=== PATIENT | female | born 1965 | race Caucasian/White ===

== ENCOUNTER 2017-03-30 01:49 | Emergency (ER) | payer BC, MEDICARE ==
[2017-03-30 01:55] VITALS: RESP 18
[2017-03-30] MEDS ORDERED: SODIUM CHLORIDE 0.9% 500 ML IV STA (02:08)
[2017-03-30] MEDS ORDERED: MAG HYDROX/AL HYDROX/SIMETH 30 ML, HYOSCYAMINE ELIXIR 10 ML, CIMETIDINE HCL 300 MG PO STA ×3 (02:08)
[2017-03-30] MEDS ORDERED: ONDANSETRON 4 MG/2 ML VIAL IVP STA (02:08)
--- NOTE | 2017-03-30 02:25 | ED ---
General Adult HPI - General Chief complaint: Abdominal Pain Stated complaint: burning sensation in chest, confusion, sob Time Seen by Provider: 03/30/17 02:08 Source: patient, RN notes reviewed Mode of arrival: ambulatory Limitations: no limitations - History of Present Illness Initial comments: 52-year-old female presents emergency Department with multiple complaints. Patient complains of chest pain, upper abdominal pain and confusion. Patient states that she was at home approximately one hour ago when she started having burning sensation in her chest which has progressed into her upper abdomen. Patient states that she has some nausea no vomiting. She states that she's had a prior had a hernia repair by Dr. Silva in 3-4 years ago. Patient states that she has no cardiac history. Patient states she has a history of hypertension denies any hyperlipidemia diabetes and is a nonsmoker. Patient states she has some shortness of breath which is alleviated this time. She still complains of epigastric burning sensation. Patient does not feel this is as reflux though she has a history of it. Patient states she was also home wandering around the house and states that she felt confused sniffily mother in the room states that she was looking for her cell phone though the cell phone was in her hand. Patient denies any focal weakness. - Related Data Home Medications Medication Instructions Recorded Confirmed Amitriptyline HCl [Amitriptyline 25 mg PO BID 04/07/15 03/17/16 HCl] Baclofen [Baclofen] 10 mg PO HS 04/07/15 03/17/16 DULoxetine HCL [Cymbalta] 90 mg PO HS 04/07/15 03/17/16 Ibuprofen [Motrin] 800 mg PO TID PRN 04/07/15 03/19/16 Methocarbamol [Robaxin] 750 mg PO HS 04/07/15 03/17/16 oxyCODONE HCL [oxyCODONE HCL] 30 mg PO Q6H PRN 04/07/15 03/17/16 Dextroamphetamine/Amphetamine 20 mg PO BID 03/17/16 03/17/16 [Adderall] Topiramate [Topamax] 50 mg PO BID 03/17/16 03/17/16 Vitamin B Complex 1 each PO DAILY 03/17/16 03/17/16 traZODone HCL 150 mg PO HS 03/17/16 03/17/16 Previous Rx's Medication Instructions Recorded Hyoscyamine Sulfate [Levsin] 0.125 mg PO Q4HR PRN #10 tab 03/30/17 Allergies Allergy/AdvReac Type Severity Reaction Status Date / Time morphine Allergy Mild Rash/Hives Verified 03/30/17 01:55 Review of Systems ROS Statement: Those systems with pertinent positive or pertinent negative responses have been documented in the HPI. ROS Other: All systems not noted in ROS Statement are negative. Past Medical History Past Medical History: COPD, Fibromyalgia, GERD/Reflux, Hearing Disorder / Deafness, Osteoarthritis (OA), Pneumonia, Sleep Apnea/CPAP/BIPAP Additional Past Medical History / Comment(s): HIATAL HERNIA. CPAP @ 7.5L History of Any Multi-Drug Resistant Organisms: None Reported Past Surgical History: Hernia Repair, Hysterectomy, Orthopedic Surgery Additional Past Surgical History / Comment(s): TKA X2 RT, BILAT CTR, KNEE ARTHROSCOPY LEFT . HAD SEVERE PNEUMONIA AT 6 MONTHS & HAD A TRACH. LAPARATOMY REMOVAL OF LEFT OVARIAN CYST. X5 Past Anesthesia/Blood Transfusion Reactions: No Reported Reaction Past Psychological History: Depression Smoking Status: Former smoker Past Alcohol Use History: None Reported Additional Past Alcohol Use History / Comment(s): QUIT SMOKING 10 YRS AGO. SMOKED SINCE AGE 14 1 1/2 PPD Past Drug Use History: None Reported - Past Family History Father Family Medical History: Cancer Additional Family Medical History / Comment(s): COLON General Exam Limitations: no limitations General appearance: alert, in no apparent distress Head exam: Present: atraumatic, normocephalic, normal inspection Eye exam: Present: normal appearance, PERRL, EOMI. Absent: scleral icterus, conjunctival injection, periorbital swelling Respiratory exam: Present: normal lung sounds bilaterally. Absent: respiratory distress, wheezes, rales, rhonchi, stridor, chest wall tenderness Cardiovascular Exam: Present: regular rate, normal rhythm, normal heart sounds. Absent: systolic murmur, diastolic murmur, rubs, gallop, clicks GI/Abdominal exam: Present: soft, tenderness (Moderate epigastric), normal bowel sounds. Absent: distended, guarding, rebound, rigid Back exam: Absent: CVA tenderness (R), CVA tenderness (L) Neurological exam: Present: alert, oriented X3, CN II-XII intact Skin exam: Present: warm, dry, intact, normal color. Absent: rash Course Vital Signs 03/30/17 01:53 Temperature 97.9 F Pulse Rate 103 H Respiratory 18 Rate Blood Pressure 134/73 O2 Sat by Pulse 98 Oximetry - Reevaluation(s) Reevaluation #1: 03/30/17 03:36 Patient was updated on lab results come EKG chest x-ray KUB. Patient feels much improved after GI cocktail. This most likely related to her GERD/ gastritis. She's had a previous scope done recently. EKG Findings - EKG Comments: EKG Findings:: EKG performed at 2:22 normal sinus rhythm with a rate of 85 DE 186 QRS duration 84, QT/QTC 350/416 Medical Decision Making - Medical Decision Making 52-year-old female presented for lower chest, upper abdominal pain. Patient's symptoms is essentially resolved with GI cocktail. This is related to her gastritis diagnosed with Dr. Silva. Patient will follow-up with Dr. Silva. Patient be given Hycotuss min as she felt better. Patient also be informed she can take [id number] Mylanta. - Lab Data Result diagrams: 03/30/17 02:22 03/30/17 02:22 Lab Results 03/30/17 03/30/17 03/30/17 Range/Units 02:22 02:22 02:22 WBC 10.7 H (3.8-10.6) k/uL RBC 4.43 (3.80-5.40) m/uL Hgb 12.3 (11.4-16.0) gm/dL Hct 39.2 (34.0-46.0) % MCV 88.5 (80.0-100.0) fL MCH 27.8 (25.0-35.0) pg MCHC 31.4 (31.0-37.0) g/dL RDW 13.1 (11.5-15.5) % Plt Count 418 (150-450) k/uL Neutrophils % 56 % Lymphocytes % 31 % Monocytes % 8 % Eosinophils % 4 % Basophils % 1 % Neutrophils # 6.0 (1.3-7.7) k/uL Lymphocytes # 3.3 (1.0-4.8) k/uL Monocytes # 0.8 (0-1.0) k/uL Eosinophils # 0.4 (0-0.7) k/uL Basophils # 0.1 (0-0.2) k/uL PT 10.5 (9.0-12.0) sec INR 1.0 (<1.1) APTT 26.2 (22.0-30.0) sec Sodium 142 (137-145) mmol/L Potassium 3.9 (3.5-5.1) mmol/L Chloride 105 (98-107) mmol/L Carbon Dioxide 24 (22-30) mmol/L Anion Gap 13 mmol/L BUN 12 (7-17) mg/dL Creatinine 0.93 (0.52-1.04) mg/dL Est GFR (MDRD) Af Amer >60 (>60 ml/min/1.73 sqM) Est GFR (MDRD) Non-Af >60 (>60 ml/min/1.73 sqM) Glucose 78 (74-99) mg/dL Calcium 9.4 (8.4-10.2) mg/dL Total Bilirubin 0.5 (0.2-1.3) mg/dL AST 22 (14-36) U/L ALT 26 (9-52) U/L Alkaline Phosphatase 58 (38-126) U/L Troponin I (0.000-0.034) ng/mL Total Protein 7.7 (6.3-8.2) g/dL Albumin 4.7 (3.5-5.0) g/dL Amylase 93 (30-110) U/L Lipase 122 (23-300) U/L Urine Color Urine Appearance (Clear) Urine pH (5.0-8.0) Ur Specific [place] (1.001-1.035) Urine Protein (Negative) Urine Glucose (UA) (Negative) Urine Ketones (Negative) Urine Blood (Negative) Urine Nitrite (Negative) Urine Bilirubin (Negative) Urine Urobilinogen (<2.0) mg/dL Ur Leukocyte Esterase (Negative) Urine RBC (0-5) /hpf Urine WBC (0-5) /hpf Ur Squamous Epith Cells (0-4) /hpf Urine Bacteria (None) /hpf Hyaline Casts (0-2) /lpf Urine Mucus (None) /hpf Urine Opiates Screen (NotDetected) Ur Oxycodone Screen (NotDetected) Urine Methadone Screen (NotDetected) Ur Propoxyphene Screen (NotDetected) Ur Barbiturates Screen (NotDetected) U Tricyclic Antidepress (NotDetected) Ur Phencyclidine Scrn (NotDetected) Ur Amphetamines Screen (NotDetected) U Methamphetamines Scrn (NotDetected) U Benzodiazepines Scrn (NotDetected) Urine Cocaine Screen (NotDetected) U Marijuana (THC) Screen (NotDetected) 03/30/17 03/30/17 03/30/17 Range/Units 02:22 02:22 02:22 WBC (3.8-10.6) k/uL RBC (3.80-5.40) m/uL Hgb (11.4-16.0) gm/dL Hct (34.0-46.0) % MCV (80.0-100.0) fL MCH (25.0-35.0) pg MCHC (31.0-37.0) g/dL RDW (11.5-15.5) % Plt Count (150-450) k/uL Neutrophils % % Lymphocytes % % Monocytes % % Eosinophils % % Basophils % % Neutrophils # (1.3-7.7) k/uL Lymphocytes # (1.0-4.8) k/uL Monocytes # (0-1.0) k/uL Eosinophils # (0-0.7) k/uL Basophils # (0-0.2) k/uL PT (9.0-12.0) sec INR (<1.1) APTT (22.0-30.0) sec Sodium (137-145) mmol/L Potassium (3.5-5.1) mmol/L Chloride (98-107) mmol/L Carbon Dioxide (22-30) mmol/L Anion Gap mmol/L BUN (7-17) mg/dL Creatinine (0.52-1.04) mg/dL Est GFR (MDRD) Af Amer (>60 ml/min/1.73 sqM) Est GFR (MDRD) Non-Af (>60 ml/min/1.73 sqM) Glucose (74-99) mg/dL Calcium (8.4-10.2) mg/dL Total Bilirubin (0.2-1.3) mg/dL AST (14-36) U/L ALT (9-52) U/L Alkaline Phosphatase (38-126) U/L Troponin I <0.012 (0.000-0.034) ng/mL Total Protein (6.3-8.2) g/dL Albumin (3.5-5.0) g/dL Amylase (30-110) U/L Lipase (23-300) U/L Urine Color Yellow Urine Appearance Cloudy H (Clear) Urine pH 5.5 (5.0-8.0) Ur Specific [place] 1.008 (1.001-1.035) Urine Protein Negative (Negative) Urine Glucose (UA) Negative (Negative) Urine Ketones Negative (Negative) Urine Blood Negative (Negative) Urine Nitrite Negative (Negative) Urine Bilirubin Negative (Negative) Urine Urobilinogen <2.0 (<2.0) mg/dL Ur Leukocyte Esterase Large H (Negative) Urine RBC 4 (0-5) /hpf Urine WBC 16 H (0-5) /hpf Ur Squamous Epith Cells 11 H (0-4) /hpf Urine Bacteria Rare H (None) /hpf Hyaline Casts 8 H (0-2) /lpf Urine Mucus Rare H (None) /hpf Urine Opiates Screen Not Detected (NotDetected) Ur Oxycodone Screen Detected H (NotDetected) Urine Methadone Screen Not Detected (NotDetected) Ur Propoxyphene Screen Not Detected (NotDetected) Ur Barbiturates Screen Not Detected (NotDetected) U Tricyclic Antidepress Detected H (NotDetected) Ur Phencyclidine Scrn Not Detected (NotDetected) Ur Amphetamines Screen Detected H (NotDetected) U Methamphetamines Scrn Not Detected (NotDetected) U Benzodiazepines Scrn Not Detected (NotDetected) Urine Cocaine Screen Not Detected (NotDetected) U Marijuana (THC) Screen Not Detected (NotDetected) Disposition Clinical Impression: Abdominal pain, Gastritis, Esophageal spasm Disposition: HOME SELF-CARE Condition: Stable Instructions: Gastritis (ED) Additional Instructions: Please return to the Emergency Department if symptoms worsen or any other concerns. Prescriptions: Hyoscyamine Sulfate [Levsin] 0.125 mg PO Q4HR PRN #10 tab PRN Reason: Abdominal pain Referrals: Jason Jameson MD [Primary Care Provider] - 1-2 days Time of Disposition: 03:39
[2017-03-30 02:42] LABS: Basophils # (A) 0.1 k/uL (0-0.2); Basophils % (A) 1 %; CH 28.6; CHCM 32.5; Eosinophils # (A) 0.4 k/uL (0-0.7); Eosinophils % (A) 4 %; HCT 39.2 % (34.0-46.0); HDW 2.29; HGB 12.3 gm/dL (11.4-16.0); Luc # (Auto) 0.18; Luc % (Auto) 2; Lymphocytes # (A) 3.3 k/uL (1.0-4.8); Lymphocytes % (A) 31 %; MCH 27.8 pg (25.0-35.0); MCHC 31.4 g/dL (31.0-37.0); MCV 88.5 fL (80.0-100.0); Mean Platelet Volume 7.2; Monocytes # (A) 0.8 k/uL (0-1.0); Monocytes % (A) 8 %; Neutrophils % (A) 56 %; RBC 4.43 m/uL (3.80-5.40); RDW 13.1 % (11.5-15.5); WBC 10.7 k/uL (3.8-10.6); WBC (Perox) 11.33
[2017-03-30 02:50] LABS: Partial Thromboplastin Time 26.2 sec (22.0-30.0); Prothrombin Time 10.5 sec (9.0-12.0)
[2017-03-30 02:51] LABS: Appearance,Urine Cloudy (Clear); Bacteria,Urine Rare /hpf; Bilirubin,Urine Negative (Negative); Glucose,Urine (UA) Negative (Negative); Ketones,Urine Negative (Negative); Leukocyte Esterase,Urine Large (Negative); Mucus,Urine Rare /hpf; Nitrite,Urine Negative (Negative); PH, Urine 5.5 (5.0-8.0); Particle Count 12249; Protein,Urine Negative (Negative); RBC,Urine 4 /hpf (0-5); Specific Gravity,Urine 1.008 (1.001-1.035); Squamous Epithelial Cell,Urine 11 /hpf (0-4); UA Billing (MACRO vs. MICRO) MICRO; Urobilinogen,Urine <2.0 mg/dL (<2.0); WBC,Urine 16 /hpf (0-5)
[2017-03-30 03:04] LABS: ALT 26 U/L (9-52); AST 22 U/L (14-36); Alkaline Phosphatase 58 U/L (38-126); Amylase 93 U/L (30-110); Anion Gap 13 mmol/L; Blood Urea Nitrogen 12 mg/dL (7-17); Calcium 9.4 mg/dL (8.4-10.2); Carbon Dioxide 24 mmol/L (22-30); Chloride 105 mmol/L (98-107); Glucose 78 mg/dL (74-99); Non-African American GFR(MDRD) >60 (>60 ml/min/1.73 sqM); Potassium 3.9 mmol/L (3.5-5.1); Sodium 142 mmol/L (137-145); Total Bilirubin 0.5 mg/dL (0.2-1.3); Total Protein 7.7 g/dL (6.3-8.2)
--- NOTE | 2017-03-30 03:13 | CT ---
EXAM: CT Head Without Intravenous Contrast CLINICAL HISTORY: Reason: confusion TECHNIQUE: Axial computed tomography images of the head/brain without intravenous contrast. CTDI is 57 mGy and DLP is 1013 mGy-cm. This CT exam was performed using one or more of the following dose reduction techniques: automated exposure control, adjustment of the mA and/or kV according to patient size, and/or use of iterative reconstruction technique. COMPARISON: MRI brain 09/10/2015. FINDINGS: Brain: Unremarkable. No acute hemorrhage. Ventricles: No hydrocephalus. Redemonstrated slightly asymmetric larger size of the left lateral ventricle. Bones/joints: Unremarkable. No acute fracture. Soft tissues: Unremarkable. Vasculature: Intracranial vascular calcifications. Sinuses: Unremarkable as visualized. No acute sinusitis. Mastoid air cells: Unremarkable as visualized. No mastoid effusion. IMPRESSION: No acute intracranial abnormality.
--- NOTE | 2017-03-30 03:26 | XR ---
EXAM: XR Abdomen, 1 View CLINICAL HISTORY: Reason: abdominal pain TECHNIQUE: Frontal upright view of the abdomen/pelvis. COMPARISON: Abdominal films 03/10/2016. FINDINGS: Gastrointestinal tract: Nonobstructive bowel gas pattern. Gas-filled stomach. No free air under the hemidiaphragms. Organs: Cholecystectomy clips. Enlarged liver shadow concerning for hepatomegaly. Bones/joints: Mild degenerative changes of the spine. IMPRESSION: 1. Nonobstructive bowel gas pattern. 2. Gas-filled stomach. 3. Cholecystectomy clips. 4. Enlarged liver shadow concerning for hepatomegaly.
--- NOTE | 2017-03-30 03:27 | XR ---
EXAM: XR Chest, 2 Views CLINICAL HISTORY: Reason: abdominal pain TECHNIQUE: Frontal and lateral views of the chest. COMPARISON: Chest x-ray 04/10/2015. FINDINGS: Lungs: Unremarkable. No consolidation. Pleural space: Unremarkable. No pneumothorax. Heart: Unremarkable. No cardiomegaly. Mediastinum: Unremarkable. Bones/joints: Mild degenerative changes of the spine. Upper abdomen: Gas-filled stomach. Cholecystectomy clips. IMPRESSION: No acute cardiopulmonary process.
[2017-03-30 03:51] VITALS: BP 114/68; PULSE 76; TEMP 97.2
== END 2017-03-30 03:51 | disposition home or self-care (01) ==
LOC: EC 01:49
DX: K29.70 Gastritis, unspecified, without bleeding (principal); K22.4 Dyskinesia of esophagus; R06.02 Shortness of breath; R41.0 Disorientation, unspecified; M79.7 Fibromyalgia; K21.9 Gastro-esophageal reflux disease without esophagitis; M19.90 Unspecified osteoarthritis, unspecified site; H91.90 Unspecified hearing loss, unspecified ear; F32.9 Major depressive disorder, single episode, unspecified; Z87.891 Personal history of nicotine dependence; Z98.890 Other specified postprocedural states; Z90.710 Acquired absence of both cervix and uterus; Z79.899 Other long term (current) drug therapy; Z88.5 Allergy status to narcotic agent
CPT/HCPCS: 36415; 93005; 80053; 82150; 83690; 84484; 85025; 85610; 85730; 81001; 80306; 71020; 74000; 70450; 99284; 96374; 96361; J2405

== ENCOUNTER → 2017-04-07 | Outpatient (CLI) | payer BC, MEDICARE ==
--- NOTE | 2017-04-07 14:03 | MR ---
EXAMINATION TYPE: MR cervical spine wo con DATE OF EXAM ORDERED: 04/07/2017 1:50 PM HISTORY: M54.2 Cervicalgia. TECHNOLOGIST HISTORY AT TIME OF EXAM: Cervicalgia COMPARISON: Previous study dated 12/19/2014. TECHNIQUE: Multiplanar, multiecho imaging of the cervical spine was obtained without contrast on a 1 .5 [place] magnet. FINDINGS: Prevertebral soft tissues are normal. Vertebral body height and alignment are maintained. Atlantoaxial relationships are normal. There is a normal craniocervical junction. Cord signal appears normal. At C2-C3, no definite abnormality is seen. At C3-C4, there is a central disc protrusion deforming the thecal sac with cord contact but without c ompression. Intervertebral foramina are well maintained. The facet and uncovertebral joints are unrem arkable. At C4-C5, the intervertebral foramina are maintained. There is a mild, diffuse disc displacement. The facet and uncovertebral joints are unremarkable. At C5-C6, there is disc space loss. There is a diffuse disc displacement. This is deforming the theca l sac anteriorly with cord contact and mild compression. There is mild, bilateral intervertebral fora margie narrowing. At C6-C7, there is disc space loss. There is a broad-based disc protrusion deforming the thecal sac w ith cord contact but without compression. There is mild, bilateral intervertebral foraminal narrowing . At C7-T1, there is disc space loss. Intervertebral foramina are well maintained. There is no signific ant compressive discopathy. IMPRESSION: 1. STABLE CENTRAL DISC PROTRUSION, C3-4 DEFORMING THE THECAL SAC WITH CORD CONTACT WITHOUT COMPRESSIO N. 2. DIFFUSE DISC DISPLACEMENT OR PROTRUSIONS, C5-6 AND C6-7 DEFORMING THE THECAL SAC WITH CORD CONTACT WITH MILD COMPRESSION AT C5-6.
== END | disposition home or self-care (01) ==
LOC: RADMRIMAIN 13:21
PROVIDERS: ATTEND Psychiatry & Neurology Neurology
DX: M50.21 Other cervical disc displacement, high cervical region (principal); Z88.5 Allergy status to narcotic agent; Z88.8 Allergy status to other drugs, medicaments and biological substances; Z91.048 Other nonmedicinal substance allergy status
CPT/HCPCS: 72141

== ENCOUNTER → 2017-04-11 | Outpatient (CLI) | payer BC, MEDICARE ==
--- NOTE | 2017-04-11 11:11 | FL ---
EXAMINATION TYPE: FL barium swallow DATE OF EXAM: 04/11/2017 LIMITED ESOPHAGRAM: CLINICAL HISTORY: History of Johnathan fundoplication surgery 2013 with increasing dysphasia or food ge tting stuck in the mid to lower esophagus for one year. TECHNIQUE: Limited esophagram is performed utilizing 2-3 oz of ez Paque barium. A total of 0.4 minut es of fluoroscopic time was utilized during procedure. COMPARISON: CT abdomen and pelvis March 10, 2016. Prior esophagram March 18, 2016. FINDINGS: The patient drank oral contrast. There is good flow of contrast along the course of the esophagus on today's study. There is good flow of contrast along the course of the diaphragmatic hia tus and proximal stomach at level of hiatal hernia surgery. There is no recurrent hiatal hernia seen . No suspicious intraluminal mass or stricture identified. Cholecystectomy clips are incidentally not ed. IMPRESSION: No evidence of recurrent hiatal hernia or significant obstruction. Unremarkable study oscar rocha.
== END | disposition home or self-care (01) ==
LOC: RADFLWHC 10:14
PROVIDERS: ATTEND Surgery
DX: R13.10 Dysphagia, unspecified (principal)
CPT/HCPCS: 74220

== ENCOUNTER → 2017-04-12 | Outpatient (CLI) | payer BC, MEDICARE ==
--- NOTE | 2017-04-12 15:45 | US ---
EXAMINATION TYPE: US carotid duplex BILAT DATE OF EXAM: 04/12/2017 COMPARISON: NONE CLINICAL HISTORY: R42 DIZZINESS,R55 SYNCOPE. EXAM MEASUREMENTS: RIGHT: Peak Systolic Velocity (PSV) cm/sec ----- Right CCA: 103.0 ----- Right ICA: 120.0 ----- Right ECA: 121.0 ICA/CCA ratio: 1.2 RIGHT: End Diastole cm/sec ----- Right CCA: 32.6 ----- Right ICA: 46.2 ----- Right ECA: 29.9 LEFT: Peak Systolic Velocity (PSV) cm/sec ----- Left CCA: 130.0 ----- Left ICA: 112.0 ----- Left ECA: 113.0 ICA/CCA ratio: 0.9 LEFT: End Diastole cm/sec ----- Left CCA: 42.8 ----- Left ICA: 28.5 ----- Left ECA: 21.1 VERTEBRALS (direction of flow): Right Vertebral: Antegrade Left Vertebral: Antegrade No significant stenosis seen, mild bilateral plaque. Incidental note made of lymph nodes. IMPRESSION: No hemodynamic significant stenosis of the proximal internal carotid arteries, indirect measurement of carotid stenosis
== END | disposition home or self-care (01) ==
LOC: RADUSWWP 14:57
PROVIDERS: ATTEND Psychiatry & Neurology Neurology
DX: R42 Dizziness and giddiness (principal); R55 Syncope and collapse
CPT/HCPCS: 93880

== ENCOUNTER 2017-05-06 08:22 | Day surgery (SDC) | payer BC, MEDICARE ==
[2017-05-04 11:41] VITALS: BMI 30.1
[~2017-05-06 08:22] MED LIST: LACTATED RINGERS 1,000 ML IV SCH
[2017-05-06 08:56] VITALS: RESP 16; TEMP 97.3
[2017-05-06] MEDS ORDERED: LIDOCAINE 1% 20 ML VIAL (10MG/ML) FOR IV START SQ ONE (09:02)
[2017-05-06] MEDS ORDERED: LIDOCAINE 1% INJ 10MG/ML (20 ML MDV) ONE (09:15)
[2017-05-06] MEDS ORDERED: PROPOFOL 10 MG/ML 20 ML VIAL IV ONE (09:15)
--- NOTE | 2017-05-06 09:18 | P.GSHP ---
History of Present Illness H&P Date: 05/06/17 Chief Complaint: Dysphagia This a 52-year-old female who said complaints of dysphagia. Patient had a recent esophagram shows no evidence of hiatal hernia obstruction. She presents today for EGD. - Constitutional Constitutional: Reports as per HPI Past Medical History Past Medical History: COPD, Fibromyalgia, GERD/Reflux, Hyperlipidemia, Hypertension, Osteoarthritis (OA), Sleep Apnea/CPAP/BIPAP Additional Past Medical History / Comment(s): HIATAL HERNIA; CPAP @ 7.5L; History of Any Multi-Drug Resistant Organisms: None Reported Past Surgical History: Hernia Repair, Hysterectomy, Orthopedic Surgery Additional Past Surgical History / Comment(s): total r knee x2; BILAT CARPAL TUNNEL; KNEE ARTHROSCOPY LEFT;. REMOVAL OF LEFT OVARIAN CYST. X5 Past Anesthesia/Blood Transfusion Reactions: No Reported Reaction Smoking Status: Former smoker - Past Family History Father Family Medical History: Cancer Additional Family Medical History / Comment(s): COLON Medications and Allergies Home Medications Medication Instructions Recorded Confirmed Type Amitriptyline HCl [Amitriptyline 25 mg PO BID 04/07/15 05/04/17 History HCl] Baclofen [Baclofen] 10 mg PO HS 04/07/15 05/04/17 History DULoxetine HCL [Cymbalta] 90 mg PO HS 04/07/15 05/04/17 History Ibuprofen [Motrin] 800 mg PO TID PRN 04/07/15 05/04/17 History Methocarbamol [Robaxin] 750 mg PO HS 04/07/15 05/04/17 History oxyCODONE HCL [oxyCODONE HCL] 20 mg PO Q6H PRN 04/07/15 05/04/17 History Dextroamphetamine/Amphetamine 20 mg PO BID 03/17/16 05/04/17 History [Adderall] Topiramate [Topamax] 50 mg PO BID 03/17/16 05/04/17 History traZODone HCL 150 mg PO HS 03/17/16 05/04/17 History Lisinopril [Zestril] 10 mg PO HS 05/04/17 05/04/17 History Allergies Allergy/AdvReac Type Severity Reaction Status Date / Time morphine Allergy Mild Rash/Hives Verified 05/06/17 08:57 Surgical - Exam Vital Signs Temp Pulse Resp BP Pulse Ox 97.3 F L 88 16 121/75 99 05/06/17 08:55 05/06/17 08:55 05/06/17 08:55 05/06/17 08:55 05/06/17 08:55 - General well developed, no distress - Eyes PERRL - ENT normal pinna - Neck no masses - Respiratory normal expansion - Cardiovascular Rhythm: regular - Abdomen Abdomen: soft, non tender Assessment and Plan Plan: Dysphagia,. We will perform EGD.
--- NOTE | 2017-05-06 09:28 | P.OP ---
Date of Procedure: 05/06/17 Preoperative Diagnosis: Dysphagia Postoperative Diagnosis: Mild antral gastritis No hiatal hernia No evidence of esophagitis Procedure(s) Performed: EGD Implants: Anesthesia: MAC Surgeon: Sarbjit Silva Pathology: other (Antral) Condition: stable Disposition: PACU Indications for Procedure: Operative Findings: Description of Procedure: The patient's placed on the endoscopy table in the lateral position. She received IV sedation. The gastroscope placed oropharynx passed in the esophagus and stomach. Scope was then placed through the pylorus. The first and second portion of the duodenum appeared normal. Scope was then brought back the antrum and this appeared mildly inflamed and a biopsies performed. The scope was unretroflexed and remainder stomach appeared normal. There is no evidence of a hiatal hernia. The GE junction was at 47 is. Due to the patient' s complaint dysphagia a 20 mm balloon was placed across the GE junction. This helped position for 3 minutes. There is known to any injury to the stomach or esophagus. The distal esophagus appeared normal. Proximal esophagus normal. Scope was withdrawn for patient.
[2017-05-06 09:57] VITALS: BP 116/62; PULSE 71
== END 2017-05-06 10:16 | disposition home or self-care (01) ==
LOC: ORWHC2ENDO 08:22
PROVIDERS: ATTEND Surgery
DX: K29.50 Unspecified chronic gastritis without bleeding (principal); R13.10 Dysphagia, unspecified; J44.9 Chronic obstructive pulmonary disease, unspecified; M79.7 Fibromyalgia; K21.9 Gastro-esophageal reflux disease without esophagitis; E78.5 Hyperlipidemia, unspecified; I10 Essential (primary) hypertension; M19.90 Unspecified osteoarthritis, unspecified site; G47.33 Obstructive sleep apnea (adult) (pediatric); Z79.899 Other long term (current) drug therapy; Z88.5 Allergy status to narcotic agent; Z87.891 Personal history of nicotine dependence
CPT/HCPCS: 88305; 88342; 43239; 43249; J2001; J2704; C1726

== ENCOUNTER → 2017-06-17 | Outpatient (CLI) | payer BC, MEDICARE ==
--- NOTE | 2017-06-17 16:43 | MR ---
EXAMINATION TYPE: MR lumbar spine wo con DATE OF EXAM: 06/17/2017 COMPARISON: 03/12/2012 HISTORY: Low back pain TECHNIQUE: Multiplanar, multisequence images of the lumbar spine were acquired. There is a T1 and T2 hyperintens e vertebral body hemangioma of T12. Subcentimeter bilateral T2 hyperintense renal lesions are seen th at are incompletely characterized but may represent renal cysts. Tiny synovial cysts are seen on the right at L4 and posteriorly at L5. L1-L2: Normal disc appearance without desiccation. No herniation, protrusion or disc bulging. No ca nal stenosis is present. Foramina are patent bilaterally. L2-L3: There is a small broad-based disc bulge. No herniation, protrusion or disc bulging. No canal stenosis is present. Foramina are patent bilaterally. L3-L4: There is a small broad-based disc bulge in combination with facet arthropathy creates a very m ild bilateral neural foraminal narrowing. No spinal canal stenosis. L4-L5: Small broad-based disc bulge and facet arthropathy creating very mild bilateral neural foramin al narrowing. No spinal canal stenosis. L5-S1: Small broad-based disc bulge is seen. No evidence of neuroforaminal narrowing or spinal canal stenosis. Lumbar segments are intact. No paraspinal masses are identified. Conus medullaris has a normal appe arance. IMPRESSION: No evidence of disc herniation. No spinal canal stenosis.
== END | disposition home or self-care (01) ==
LOC: RADMRIMAIN 15:42
PROVIDERS: ATTEND Physician Assistant
DX: M54.5 Low back pain (principal)
CPT/HCPCS: 72148

== ENCOUNTER → 2017-07-20 | Outpatient (CLI) | payer BC, MEDICARE ==
[2017-07-20 17:09] LABS: Basophils % (A) 1 %; CH 27.8; CHCM 32.1; Eosinophils # (A) 0.3 k/uL (0-0.7); Eosinophils % (A) 4 %; HCT 37.3 % (34.0-46.0); HDW 2.41; HGB 12.5 gm/dL (11.4-16.0); Luc # (Auto) 0.17; Luc % (Auto) 2; Lymphocytes # (A) 2.3 k/uL (1.0-4.8); Lymphocytes % (A) 29 %; MCHC 33.4 g/dL (31.0-37.0); MCV 86.9 fL (80.0-100.0); Mean Platelet Volume 7.1; Monocytes # (A) 0.5 k/uL (0-1.0); Monocytes % (A) 6 %; Neutrophils # (A) 4.7 k/uL (1.3-7.7); Neutrophils % (A) 59 %; RDW 13.4 % (11.5-15.5); WBC 7.9 k/uL (3.8-10.6); WBC (Perox) 8.17
[2017-07-20 17:11] LABS: ALT 32 U/L (9-52); AST 21 U/L (14-36); Alkaline Phosphatase 71 U/L (38-126); Anion Gap 12 mmol/L; Blood Urea Nitrogen 18 mg/dL (7-17); Carbon Dioxide 25 mmol/L (22-30); Chloride 104 mmol/L (98-107); Creatine Kinase 209 U/L (30-135); Glucose 103 mg/dL (74-99); Non-African American GFR(MDRD) 53 (>60 ml/min/1.73 sqM); Potassium 4.1 mmol/L (3.5-5.1); Sodium 141 mmol/L (137-145); Total Bilirubin 0.2 mg/dL (0.2-1.3); Total Protein 7.3 g/dL (6.3-8.2)
--- NOTE | 2017-07-20 17:14 | CT ---
EXAMINATION TYPE: CT angio chest DATE OF EXAM: 07/20/2017 5:09 PM COMPARISON: NONE HISTORY: Dyspnea and chest pressure. CT DLP: 475.00 mGycm Automated exposure control for dose reduction was used. CONTRAST: CTA scan of the thorax is performed with IV Contrast, patient injected with 73 mL of Omnipaque 350, p ulmonary embolism protocol. There are 3-D post processed images.. FINDINGS: The lungs are clear of consolidation. There is no pleural effusion. Heart appears normal. There is no pericardial effusion. I see no filling defects in the pulmonary arteries. There is no evidence of aortic aneurysm or dissec tion. There is no mediastinal adenopathy. The thoracic spine is intact. IMPRESSION: NEGATIVE CT ANGIOGRAM OF THE CHEST. NO EVIDENCE OF PULMONARY EMBOLISM.
== END | disposition home or self-care (01) ==
LOC: RADCTMAIN 16:39
PROVIDERS: ATTEND Internal Medicine Critical Care Medicine
DX: R06.00 Dyspnea, unspecified (principal); Z88.6 Allergy status to analgesic agent
CPT/HCPCS: 84439; 80053; 82550; 84443; 85025; 71275; 36415; Q9967; 84436

== ENCOUNTER → 2017-08-01 | Outpatient (CLI) | payer BC, MEDICARE ==
--- NOTE | 2017-08-01 19:30 | ECHOF ---
Referral Reason:R07.89 Chest Wall Pain MEASUREMENTS -------- HEIGHT: 160.0 cm WEIGHT: 82.1 kg BP: 141/81 RVIDd: 3.0 cm (< 3.3) IVSd: 0.9 cm (0.6 - 1.1) LVIDd: 4.7 cm (3.9 - 5.3) LVPWd: 1.0 cm (0.6 - 1.1) IVSs: 1.3 cm LVIDs: 3.7 cm LVPWs: 1.5 cm LAESV Index (A-L): 17.76 ml/m Ao Diam: 2.3 cm (2.0 - 3.7) AV Cusp: 1.6 cm (1.5 - 2.6) LA Diam: 3.4 cm (2.7 - 3.8) MV EXCURSION: 17.245 mm (> 18.000) MV EF SLOPE: 102 mm/s (70 - 150) EPSS: 0.7 cm MV E Rafita: 0.90 m/s MV DecT: 189 ms MV A Rafita: 0.74 m/s MV E/A Ratio: 1.21 RAP: 5.00 mmHg RVSP: 21.42 mmHg FINDINGS -------- Sinus rhythm. This was a technically good study. The left ventricular size is normal. Left ventricular wall thickness is normal. Overall left ventricular systolic function is normal with, an EF between 55 - 60 %. The right ventricle is normal in size and function. Normal LA size by volume 22+/-6 ml/m2. The right atrium is normal in size. The aortic valve is trileaflet, and appears structurally normal. No aortic stenosis or regurgitation. The mitral valve leaflets are mildly thickened. There is trace mitral regurgitation. Trace tricuspid regurgitation present. Right ventricular systolic pressure is normal at < 35 mmHg. There is no evidence of pulmonary hypertension. The pulmonic valve is normal. The aortic root size is normal. Normal inferior vena cava with normal inspiratory collapse consistent with estimated right atrial pressure of 5 mmHg. The pericardium is normal. There is no pericardial effusion. CONCLUSIONS -------- 1. Sinus rhythm. 2. Right ventricular systolic pressure is normal at < 35 mmHg. 3. There is no evidence of pulmonary hypertension. 4. The aortic root size is normal. 5. There is no pericardial effusion. 6. This was a technically good study. 7. The left ventricular size is normal. 8. Overall left ventricular systolic function is normal with, an EF between 55 - 60 %. 9. Normal LA size by volume 22+/-6 ml/m2. 10. The aortic valve is trileaflet, and appears structurally normal. No aortic stenosis or regurgitation. 11. The mitral valve leaflets are mildly thickened. 12. There is trace mitral regurgitation. 13. Trace tricuspid regurgitation present. MEDICAL APPLIANCE MAKER: Lee Palumbo RDCS
== END | disposition home or self-care (01) ==
LOC: RADECHMAIN 15:52
PROVIDERS: ATTEND Internal Medicine Critical Care Medicine
DX: I08.1 Rheumatic disorders of both mitral and tricuspid valves (principal)
CPT/HCPCS: 93306

== ENCOUNTER → 2017-08-10 | Outpatient (CLI) | payer BC, MEDICARE ==
[~2017-08-10] MED LIST changes: +DOBUTamine DRIP for NUC MED 500 MG in DEXTROSE/WATER 1 250ML.BAG IV ONE; -LACTATED RINGERS 1,000 ML IV SCH
--- NOTE | 2017-08-10 11:52 | ECHOS ---
STRESS ECHOCARDIOGRAM DATE OF SERVICE: 08/10/2017 MEDICATIONS:: Baclofen, oxycodone, Topamax, Cymbalta, lisinopril. BASELINE HEART RATE: 71 BASELINE BLOOD PRESSURE: 108/62 MAXIMUM HEART RATE: 146 MAXIMUM BLOOD PRESSURE: 216/67 85% MPHR: 144 100% MPHR: 169 METS: MAXIMUM STAGE REACHED: TOTAL EXERCISE TIME: INDICATIONS: Pre-op cardiac evaluation. Baseline EKG shows sinus rhythm, normal axis, normal intervals. The patient was given intravenous dobutamine over a period of 8 minutes as per protocol. The patient attained 86% of predicted maximal heart rate without chest pain or diagnostic ST-segment depression. Baseline echo shows normal left ventricular size wall motion systolic function. Post dobutamine infusion, there is normal hyperdynamic response of all segments of myocardium noted. CONCLUSIONS: 1. Negative stress test by EKG criteria. 2. Negative dobutamine echo. MMODL / IJN: [id number] /
== END | disposition home or self-care (01) ==
LOC: RADNMMAIN 10:35
PROVIDERS: ATTEND Internal Medicine
DX: Z01.810 Encounter for preprocedural cardiovascular examination (principal); I20.8 Other forms of angina pectoris
CPT/HCPCS: 93017; 93350

== ENCOUNTER → 2017-08-30 | Outpatient (CLI) | payer BC, MEDICARE ==
--- NOTE | 2017-08-30 11:24 | XR ---
EXAMINATION TYPE: XR chest 2V DATE OF EXAM: 08/30/2017 COMPARISON: Chest x-ray August 17, 2017. CTA chest August 25, 2017. HISTORY: Pneumonia 3 weeks ago after neck surgery. TECHNIQUE: Frontal and lateral views of the chest are obtained. FINDINGS: Improved aeration posterior lung base on lateral view is noted. Improving right-sided effus ion is seen. There is no new focal air space opacity, pleural effusion, or pneumothorax seen. The c ardiac silhouette size is within normal limits. Surgical changes lower cervical spine is partially im aged. IMPRESSION: Resolved basilar infiltrate. Resolving small right pleural effusion. No new infiltrate i s seen.
== END | disposition home or self-care (01) ==
LOC: RADXRMAIN 10:52
PROVIDERS: ATTEND Family Medicine
DX: J90 Pleural effusion, not elsewhere classified (principal); J18.1 Lobar pneumonia, unspecified organism
CPT/HCPCS: 71020

== ENCOUNTER 2017-10-27 17:50 | Emergency (ER) | payer BC, MEDICARE ==
[2017-10-27] MEDS ORDERED: RX INFO: IV CONTRAST WAS GIVEN 1 EACH MISC MISCELLANE PRN (19:31)
[2017-10-27] MEDS ORDERED: SODIUM CHLORIDE 0.9% 1,000 ML IV ONE (19:32)
[2017-10-27] MEDS ORDERED: KETOROLAC 30 MG/ML 1 ML VIAL IVP STA (19:32)
--- NOTE | 2017-10-27 19:48 | ED ---
Neck Injury/Pain HPI - General Chief Complaint: Neck Pain/Injury Stated Complaint: Neck pain Time Seen by Provider: 10/27/17 18:58 Source: RN notes reviewed, old records reviewed Mode of arrival: ambulatory Limitations: no limitations - History of Present Illness Initial Comments: 52-year-old female presents emergency room chief complaint of draining from her incision from a discectomy completed in July. She reports she's been having worsening pain over her neck and shoulders, DrPrincess to come in today. She reports that she called her physician because she noticed a lump over the incision site is concerned he may be an infection there. She reports there is some minor drainage over her bandage that she keeps over the incision. Patient denies any fever or chills. She denies any chest pain shortness breath, nausea vomiting or coughing. She reports that her surgeon is Dr. Waller in [facility]. - Related Data Home Medications Medication Instructions Recorded Confirmed Baclofen 10 mg PO HS 04/07/15 10/27/17 DULoxetine HCL [Cymbalta] 30 mg PO HS 04/07/15 10/27/17 Methocarbamol [Robaxin] 750 mg PO TID 04/07/15 10/27/17 oxyCODONE HCL 20 mg PO TID 04/07/15 10/27/17 Dextroamphetamine/Amphetamine 20 mg PO BID 03/17/16 10/27/17 [Adderall] traZODone HCL 150 mg PO HS 03/17/16 10/27/17 Lisinopril [Zestril] 10 mg PO HS 05/04/17 10/27/17 DULoxetine HCL [Cymbalta] 60 mg PO HS 08/15/17 10/27/17 Gabapentin 800 mg PO TID 08/15/17 10/27/17 Topiramate [Topamax] 50 mg PO BID 10/27/17 10/27/17 Previous Rx's Medication Instructions Recorded Cephalexin [Keflex] 500 mg PO Q8HR #21 cap 10/27/17 Allergies Allergy/AdvReac Type Severity Reaction Status Date / Time morphine Allergy Mild Rash/Hives Verified 10/27/17 19:10 Review of Systems ROS Statement: Those systems with pertinent positive or pertinent negative responses have been documented in the HPI. ROS Other: All systems not noted in ROS Statement are negative. Past Medical History Past Medical History: COPD, Fibromyalgia, GERD/Reflux, Hyperlipidemia, Hypertension, Osteoarthritis (OA), Sleep Apnea/CPAP/BIPAP Additional Past Medical History / Comment(s): HIATAL HERNIA; CPAP @ 7.5L; History of Any Multi-Drug Resistant Organisms: None Reported Past Surgical History: Section, Hernia Repair, Hysterectomy, Orthopedic Surgery Additional Past Surgical History / Comment(s): total r knee x2; BILAT CARPAL TUNNEL; KNEE ARTHROSCOPY LEFT;. LEFT OVARIAN CYST removal failed. X5 , cervical discectomy 08/2017 Past Anesthesia/Blood Transfusion Reactions: No Reported Reaction Past Psychological History: Depression Smoking Status: Former smoker Past Alcohol Use History: None Reported Past Drug Use History: None Reported - Past Family History Mother Family Medical History: Congestive Heart Failure (CHF) Father Family Medical History: Cancer Additional Family Medical History / Comment(s): COLON General Exam - General Exam Comments Initial Comments: 52-year-old female. No distress. Limitations: no limitations General appearance: alert, in no apparent distress Head exam: Present: atraumatic, normocephalic, normal inspection Eye exam: Present: normal appearance, PERRL, EOMI. Absent: scleral icterus, conjunctival injection, periorbital swelling ENT exam: Present: normal exam, mucous membranes moist Neck exam: Present: normal inspection, other (Patient has an incision over the left lower neck measuring a possibly 5 cm. There appears to be a scab in the center, likely the area of her patients drainage is coming from. No purulent drainage noted at this time. is no area of fluctuance or erythema around the incision.). Absent: tenderness, meningismus, lymphadenopathy Respiratory exam: Present: normal lung sounds bilaterally. Absent: respiratory distress, wheezes, rales, rhonchi, stridor Cardiovascular Exam: Present: regular rate, normal rhythm, normal heart sounds. Absent: systolic murmur, diastolic murmur, rubs, gallop, clicks GI/Abdominal exam: Present: soft, normal bowel sounds. Absent: distended, tenderness, guarding, rebound, rigid Extremities exam: Present: normal inspection, full ROM, normal capillary refill. Absent: tenderness, pedal edema, joint swelling, calf tenderness Back exam: Present: normal inspection Course Vital Signs 10/27/17 10/27/17 10/27/17 18:11 19:17 21:11 Temperature 98.4 F 98 F Pulse Rate 89 81 80 Respiratory 18 18 20 Rate Blood Pressure 167/81 142/73 135/78 O2 Sat by Pulse 100 97 98 Oximetry Medical Decision Making - Medical Decision Making 52-year-old female presents emergency room chief complaint of draining from her incision from a discectomy completed in July. She reports she's been having worsening pain over her neck and shoulders, to come in today. She reports that she called her physician because she noticed a lump over the incision site is concerned he may be an infection there. Patient has a 5cm incision that appears well healed, no active drainage or abscess formation. Patient lab work was reviewed adn normal. CT neck with contrast shows no abnormalitiy or fluid collection near incsion site. 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 She will follow up with surgeon. Patient seemed to be very concerned about infection, discussed we can write for keflex and wait to see her physician in regards to taking it. Patient agrees to treatement plan and will comply. - Lab Data Result diagrams: 10/27/17 19:36 10/27/17 19:36 Lab Results 10/27/17 10/27/17 Range/Units 19:36 19:36 WBC 7.5 (3.8-10.6) k/uL RBC 4.36 (3.80-5.40) m/uL Hgb 12.0 (11.4-16.0) gm/dL Hct 37.5 (34.0-46.0) % MCV 86.0 (80.0-100.0) fL MCH 27.5 (25.0-35.0) pg MCHC 32.0 (31.0-37.0) g/dL RDW 13.7 (11.5-15.5) % Plt Count 412 (150-450) k/uL Neutrophils % 52 % Lymphocytes % 35 % Monocytes % 7 % Eosinophils % 4 % Basophils % 1 % Neutrophils # 3.9 (1.3-7.7) k/uL Lymphocytes # 2.6 (1.0-4.8) k/uL Monocytes # 0.5 (0-1.0) k/uL Eosinophils # 0.3 (0-0.7) k/uL Basophils # 0.1 (0-0.2) k/uL Sodium 138 (137-145) mmol/L Potassium 4.1 (3.5-5.1) mmol/L Chloride 103 (98-107) mmol/L Carbon Dioxide 26 (22-30) mmol/L Anion Gap 9 mmol/L BUN 7 (7-17) mg/dL Creatinine 0.72 (0.52-1.04) mg/dL Est GFR (MDRD) Af Amer >60 (>60 ml/min/1.73 sqM) Est GFR (MDRD) Non-Af >60 (>60 ml/min/1.73 sqM) Glucose 93 (74-99) mg/dL Calcium 9.4 (8.4-10.2) mg/dL - Radiology Data Interpreted by me: CT neck is negative for any acute process. Disposition Clinical Impression: Incisional pain Disposition: HOME SELF-CARE Condition: Good Instructions: Wound Healing and Your Diet (ED) Additional Instructions: Patient advised to follow-up with your surgeon. Take antibiotic as prescribed. Return to emergency department if any alarming signs or symptoms occur. Prescriptions: Cephalexin [Keflex] 500 mg PO Q8HR #21 cap Referrals: Jason Jameson MD [Primary Care Provider] - 1-2 days Time of Disposition: 20:59
[2017-10-27 20:06] LABS: Basophils # (A) 0.1 k/uL (0-0.2); Basophils % (A) 1 %; CH 27.8; CHCM 32.5; Eosinophils # (A) 0.3 k/uL (0-0.7); Eosinophils % (A) 4 %; HCT 37.5 % (34.0-46.0); HDW 2.38; Luc # (Auto) 0.17; Luc % (Auto) 2; Lymphocytes # (A) 2.6 k/uL (1.0-4.8); Lymphocytes % (A) 35 %; MCH 27.5 pg (25.0-35.0); Mean Platelet Volume 7.1; Monocytes # (A) 0.5 k/uL (0-1.0); Monocytes % (A) 7 %; Neutrophils # (A) 3.9 k/uL (1.3-7.7); Neutrophils % (A) 52 %; RBC 4.36 m/uL (3.80-5.40); RDW 13.7 % (11.5-15.5); WBC 7.5 k/uL (3.8-10.6); WBC (Perox) 6.49
[2017-10-27 20:14] LABS: Anion Gap 9 mmol/L; Blood Urea Nitrogen 7 mg/dL (7-17); Calcium 9.4 mg/dL (8.4-10.2); Carbon Dioxide 26 mmol/L (22-30); Chloride 103 mmol/L (98-107); Glucose 93 mg/dL (74-99); Non-African American GFR(MDRD) >60 (>60 ml/min/1.73 sqM); Potassium 4.1 mmol/L (3.5-5.1); Sodium 138 mmol/L (137-145)
--- NOTE | 2017-10-27 20:49 | CT ---
EXAMINATION TYPE: CT soft tissue neck w con DATE OF EXAM: 10/27/2017 8:31 PM COMPARISON: NONE HISTORY: Swelling to suture site on neck. Surgery [address] DLP: 639 mGycm Automated exposure control for dose reduction was used. CONTRAST: CT scan of the neck is performed following with IV Contrast, patient injected with 100 mL of Omnipaqu e 300. Axial images are obtained, coronal and sagittal reformatted images are reviewed. FINDINGS: Airway: No gross abnormality seen. Salivary glands: No gross abnormality seen. Vascular Structures: Negative as seen. Osseous Structures: Unremarkable. Other: Multifocal bilateral subcentimeter smoothly marginated and homogeneous cervical lymph nodes ar e appreciated, entirely nonspecific and likely reactive. IMPRESSION: NO SIGNIFICANT FINDINGS.
[2017-10-27 21:12] VITALS: BP 135/78; PULSE 80; RESP 20; TEMP 98
== END 2017-10-27 21:11 | disposition home or self-care (01) ==
LOC: EC 17:50
DX: G89.18 Other acute postprocedural pain (principal); M54.2 Cervicalgia; M79.7 Fibromyalgia; I10 Essential (primary) hypertension; F32.9 Major depressive disorder, single episode, unspecified; Z87.891 Personal history of nicotine dependence; Z88.5 Allergy status to narcotic agent; Z79.891 Long term (current) use of opiate analgesic; Z79.899 Other long term (current) drug therapy
CPT/HCPCS: 36415; 80048; 85025; 70491; 99284; 96374; 96361; J1885; Q9967

== ENCOUNTER → 2017-11-18 | Outpatient (CLI) | payer BC, MEDICARE ==
--- NOTE | 2017-11-18 14:13 | US ---
EXAMINATION TYPE: US venous doppler duplex LE RT DATE OF EXAM: 11/18/2017 1:56 PM COMPARISON: NONE CLINICAL HISTORY: M79.604 Leg Pain,R22.41 Leg Swelling. right anterior leblanc pain and burning at night , no h/o dvt SIDE PERFORMED: right TECHNIQUE: The lower extremity deep venous system is examined utilizing real time linear array sonog lanette with graded compression, doppler sonography and color-flow sonography. VESSELS IMAGED: External Iliac Vein (EIV) Common Femoral Vein Deep Femoral Vein Greater Saphenous Vein * Femoral Vein Popliteal Vein Small Saphenous Vein * Proximal Calf Veins (* superficial vessels) Right Leg: Appears negative for DVT Grayscale, color doppler, spectral doppler imaging performed of the deep veins of the lower extremiti es. There is normal flow, compressibility, vascular waveforms. IMPRESSION: No sonographic evidence of deep venous thrombosis within the right lower extremity. No gale perficial venous thrombosis in the patient's stated area of pain.
== END | disposition home or self-care (01) ==
LOC: RADUSWWP 13:31
PROVIDERS: ATTEND Psychiatry & Neurology Neurology
DX: R22.41 Localized swelling, mass and lump, right lower limb (principal)

== ENCOUNTER → 2018-02-20 | Outpatient (CLI) | payer BC, MEDICARE ==
--- NOTE | 2018-02-20 11:11 | US ---
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 FINDINGS: Liver Length: 14.9 cm Gallbladder: surgically absent CBD: 0.4 cm Spleen: 7.9 cm Right Kidney: 8.9 x 5.4 x 4.1 cm Left Kidney: 9.7 x 5.8 x 6.1 cm Pancreas: Obscured by bowel gas Liver: No focal lesion seen. Gallbladder: surgically absent Evidence for sonographic Lipscomb's sign: Yes CBD: wnl Spleen: wnl Right Kidney: No hydronephrosis. Left Kidney: No hydronephrosis. Upper IVC: wnl Abd Aorta: size is wnl IMPRESSION: 1. Suboptimal visualization of the pancreas. Status post cholecystectomy. 2. The color coater notes a positive sonographic Lipscomb sign. This likely reflects referred pain as th e gallbladder is surgically absent. 3. No biliary ductal dilatation.
== END | disposition home or self-care (01) ==
LOC: RADUSWWP 07:22
PROVIDERS: ATTEND Family Medicine
DX: R93.2 Abnormal findings on diagnostic imaging of liver and biliary tract (principal); R10.11 Right upper quadrant pain; Z90.49 Acquired absence of other specified parts of digestive tract
CPT/HCPCS: 76700

== ENCOUNTER → 2018-04-18 | Outpatient (CLI) | payer BC, MEDICARE ==
[2018-04-18 09:30] LABS: Albumin 4.4 g/dL (3.5-5.0); Bilirubin, Delta 0.2 mg/dL (0.0-0.2); Total Bilirubin 0.2 mg/dL (0.2-1.3); Total Protein 6.9 g/dL (6.3-8.2)
== END | disposition home or self-care (01) ==
LOC: LABWHC1 08:35
PROVIDERS: ATTEND Family Medicine
DX: E78.5 Hyperlipidemia, unspecified (principal); R10.11 Right upper quadrant pain; Z13.220 Encounter for screening for lipoid disorders
CPT/HCPCS: 36415; 80061; 80076

== ENCOUNTER → 2018-04-27 | Outpatient (CLI) | payer BC, MEDICARE ==
--- NOTE | 2018-04-27 10:58 | US ---
EXAMINATION TYPE: US abdomen complete DATE OF EXAM: 04/27/2018 COMPARISON: US 2018 CLINICAL HISTORY: R94.5 Abnormal results of liver function. Elevated LFT's, RUQ pain x couple months, occasional nausea, history of cholecystectomy EXAM MEASUREMENTS: Liver Length: 15.3 cm Gallbladder Wall: surgically absent CBD: 0.4 cm Spleen: 8.0 cm Right Kidney: 9.1 x 4.6 x 4.9 cm Left Kidney: 9.9 x 5.4 x 5.2 cm Pancreas: obscured by overlying midline bowel gas Liver: wnl Gallbladder: surgically absent Evidence for sonographic Lipscomb's sign: yes CBD: visualized portions wnl, limited by overlying bowel gas Spleen: visualized portions wnl, limited by overlying bowel gas Right Kidney: wnl Left Kidney: wnl Upper IVC: wnl Abd Aorta: visualized portions wnl, limited by overlying midline bowel gas The liver is homogenous. The intrahepatic portion of the IVC and proximal abdominal aorta are within normal limits. There is no evidence of cholelithiasis. Common bile duct is unremarkable. The visu alized portions of the pancreas are homogenous. The spleen is unremarkable. Kidneys are symmetric a nd free of hydronephrosis. No renal lesions are seen. IMPRESSION: 1. Surgical absence of the gallbladder despite this there is a continued positive sonographic Lipscomb sign. However, no gallbladder fossa fluid collections are seen or dilatation of the common bile duct to suggest choledocholithiasis. 2. As on the prior exam the pancreas is partially obscured by overlying bowel gas.
== END | disposition home or self-care (01) ==
LOC: RADUSWWP 10:17
PROVIDERS: ATTEND Family Medicine
DX: R94.5 Abnormal results of liver function studies (principal); Z90.49 Acquired absence of other specified parts of digestive tract
CPT/HCPCS: 76700

== ENCOUNTER 2018-05-26 23:02 | Emergency (ER) | payer BC, MEDICARE ==
[2018-05-26] MEDS ORDERED: METOCLOPRAMIDE 5 MG/ML 2 ML VIAL IVP STA (23:25)
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
[2018-05-27] MEDS ORDERED: ONDANSETRON 4 MG ODT STARTER PACK 2 TAB BTL PO STA (00:06)
[2018-05-27 00:45] VITALS: BP 119/73; PULSE 78; RESP 18; TEMP 97.8
== END 2018-05-27 00:42 | disposition home or self-care (01) ==
LOC: EC 23:02
DX: S06.0X0A Concussion without loss of consciousness, initial encounter (principal); S00.03XA Contusion of scalp, initial encounter; M54.2 Cervicalgia; M79.7 Fibromyalgia; I10 Essential (primary) hypertension; M19.90 Unspecified osteoarthritis, unspecified site; G47.30 Sleep apnea, unspecified; Z99.89 Dependence on other enabling machines and devices; F32.9 Major depressive disorder, single episode, unspecified; Z98.890 Other specified postprocedural states; Z87.891 Personal history of nicotine dependence; Z79.891 Long term (current) use of opiate analgesic; Z79.899 Other long term (current) drug therapy; Z88.5 Allergy status to narcotic agent; Y04.8XXA Assault by other bodily force, initial encounter
CPT/HCPCS: 72125; 70450; 99284; 96374; J2765; S0119

== ENCOUNTER 2019-04-06 16:06 | Emergency (ER) | payer BC, MEDICARE ==
[2019-04-06 16:12] VITALS: RESP 16
[2019-04-06] MEDS ORDERED: SODIUM CHLORIDE 0.9% 1,000 ML IV STA (16:47)
[2019-04-06] MEDS ORDERED: KETOROLAC 30 MG/ML 1 ML VIAL IVP STA (16:47)
[2019-04-06 17:49] LABS: Basophils # (A) 0.1 k/uL (0-0.2); Basophils % (A) 1 %; Eosinophils # (A) 0.5 k/uL (0-0.7); Eosinophils % (A) 6 %; HCT 41.5 % (34.0-46.0); HGB 13.1 gm/dL (11.4-16.0); Lymphocytes # (A) 1.9 k/uL (1.0-4.8); Lymphocytes % (A) 25 %; MCH 26.3 pg (25.0-35.0); MCHC 31.6 g/dL (31.0-37.0); MCV 83.2 fL (80.0-100.0); Mean Platelet Volume 7.2; Monocytes # (A) 0.5 k/uL (0-1.0); Monocytes % (A) 6 %; Neutrophils # (A) 4.6 k/uL (1.3-7.7); Neutrophils % (A) 60 %; Platelet Count 484 k/uL (150-450); RBC 4.99 m/uL (3.80-5.40); RDW 13.9 % (11.5-15.5); WBC 7.7 k/uL (3.8-10.6)
[2019-04-06 17:52] LABS: ALT 22 U/L (9-52); AST 22 U/L (14-36); Albumin 4.8 g/dL (3.5-5.0); Alkaline Phosphatase 76 U/L (38-126); Anion Gap 8 mmol/L; Blood Urea Nitrogen 12 mg/dL (7-17); Calcium 10.1 mg/dL (8.4-10.2); Carbon Dioxide 26 mmol/L (22-30); Chloride 107 mmol/L (98-107); Glucose 101 mg/dL (74-99); Potassium 4.9 mmol/L (3.5-5.1); Sodium 141 mmol/L (137-145); Total Bilirubin 0.3 mg/dL (0.2-1.3); Total Protein 7.9 g/dL (6.3-8.2)
[2019-04-06 17:56] LABS: Appearance,Urine Cloudy (Clear); Bacteria,Urine Rare /hpf; Bilirubin,Urine Negative (Negative); Blood,Urine Negative (Negative); Color,Urine Yellow; Glucose,Urine (UA) Negative (Negative); Ketones,Urine Negative (Negative); Leukocyte Esterase,Urine Negative (Negative); Mucus,Urine Rare /hpf; Nitrite,Urine Negative (Negative); PH, Urine 6.5 (5.0-8.0); Protein,Urine Negative (Negative); Specific Gravity,Urine 1.024 (1.001-1.035); Squamous Epithelial Cell,Urine 16 /hpf (0-4); Urobilinogen,Urine <2.0 mg/dL (<2.0)
[2019-04-06] MEDS ORDERED: MORPHINE SULFATE 2 MG/ML SYRINGE IVP ONE (18:15)
[2019-04-06] MEDS ORDERED: diphenhydrAMINE 50 MG/ML 1 ML VIAL IVP STA (18:16)
--- NOTE | 2019-04-06 18:17 | ED ---
Abdominal Pain HPI - General Chief Complaint: Abdominal Pain Stated Complaint: right side pain Time Seen by Provider: 04/06/19 16:22 Source: patient Mode of arrival: ambulatory Limitations: no limitations - History of Present Illness Initial Comments: Patient is a 54-year-old female presents emergency Department with right upper quadrant and right flank pain x 1 day. Admits to associated nausea. States pain started yesterday morning and has progressively worsened throughout the night and today. Patient admits to taking oxy and Motrin for pain relief which did not help. Patient denies fever, chills, shortness of breath, headaches, vomiting. No other complaints at this time. - Related Data Home Medications Medication Instructions Recorded Confirmed Baclofen 10 mg PO HS 04/07/15 05/26/18 DULoxetine HCL [Cymbalta] 30 mg PO HS 04/07/15 05/26/18 oxyCODONE HCL [oxyCODONE HCL (IR)] 20 mg PO TID 04/07/15 05/26/18 Dextroamphetamine/Amphetamine 20 mg PO BID 03/17/16 05/26/18 [Adderall] traZODone HCL 150 mg PO HS 03/17/16 05/26/18 Lisinopril [Zestril] 10 mg PO HS 05/04/17 05/26/18 DULoxetine HCL [Cymbalta] 60 mg PO HS 08/15/17 05/26/18 Gabapentin 800 mg PO TID 08/15/17 05/26/18 Topiramate [Topamax] 50 mg PO BID 10/27/17 05/26/18 Amitriptyline HCl [Elavil] 25 mg PO HS 05/26/18 05/26/18 Allergies Allergy/AdvReac Type Severity Reaction Status Date / Time morphine Allergy Mild Rash/Hives Verified 04/06/19 16:12 Review of Systems ROS Statement: Those systems with pertinent positive or pertinent negative responses have been documented in the HPI. ROS Other: All systems not noted in ROS Statement are negative. Past Medical History Past Medical History: COPD, Fibromyalgia, GERD/Reflux, Hyperlipidemia, Hypertension, Osteoarthritis (OA), Sleep Apnea/CPAP/BIPAP Additional Past Medical History / Comment(s): HIATAL HERNIA; CPAP @ 7.5L; History of Any Multi-Drug Resistant Organisms: None Reported Past Surgical History: Section, Hernia Repair, Hysterectomy, Orthopedic Surgery Additional Past Surgical History / Comment(s): total r knee x2; BILAT CARPAL TUNNEL; KNEE ARTHROSCOPY LEFT;. LEFT OVARIAN CYST removal failed. X5, cervical discectomy 08/2017 Past Anesthesia/Blood Transfusion Reactions: No Reported Reaction Past Psychological History: Depression Smoking Status: Former smoker Past Alcohol Use History: None Reported Past Drug Use History: None Reported - Past Family History Mother Family Medical History: Congestive Heart Failure (CHF) Father Family Medical History: Cancer Additional Family Medical History / Comment(s): COLON General Exam - General Exam Comments Initial Comments: GENERAL: Well-appearing, well-nourished and in no acute distress, but appears in pain. HEAD: Atraumatic, normocephalic. EYES: Pupils equal round and reactive to light, extraocular movements intact, sclera anicteric, conjunctiva are normal. ENT: TMs normal, nares patent, oropharynx clear without exudates. Moist mucous membranes. NECK: Normal range of motion, supple without lymphadenopathy or JVD. LUNGS: Breath sounds clear to auscultation bilaterally and equal. No wheezes rales or rhonchi. HEART: Regular rate and rhythm without murmurs, rubs or gallops. ABDOMEN: Soft, TTP right upper quadrant and right flank. normoactive bowel sounds. No guarding, no rebound. No masses appreciated. : Deferred EXTREMITIES: Normal range of motion, no pitting or edema. No clubbing or cyanosis. NEUROLOGICAL: Cranial nerves II through XII grossly intact. Normal speech, normal gait. PSYCH: Normal mood, normal affect. SKIN: Warm, Dry, normal turgor, no rashes or lesions noted. Limitations: no limitations Course Vital Signs 04/06/19 16:10 Temperature 98.1 F Pulse Rate 86 Respiratory 16 Rate Blood Pressure 153/87 O2 Sat by Pulse 99 Oximetry Medical Decision Making - Medical Decision Making Patient is a 54-year-old female complaining of right upper quadrant and right flank pain 1 day, with associated nausea. CBC, CMP, UA are all within normal limits. CT abdomen showed no acute process. Patient's pain improved with Toradol and morphine. Patient requesting to go home and will follow up with GI symptoms continue. Patient discharged home. - Lab Data Result diagrams: 04/06/19 17:35 04/06/19 17:35 Lab Results 04/06/19 04/06/19 04/06/19 Range/Units 17:35 17:35 17:35 WBC 7.7 (3.8-10.6) k/uL RBC 4.99 (3.80-5.40) m/uL Hgb 13.1 (11.4-16.0) gm/dL Hct 41.5 (34.0-46.0) % MCV 83.2 (80.0-100.0) fL MCH 26.3 (25.0-35.0) pg MCHC 31.6 (31.0-37.0) g/dL RDW 13.9 (11.5-15.5) % Plt Count 484 H (150-450) k/uL Neutrophils % 60 % Lymphocytes % 25 % Monocytes % 6 % Eosinophils % 6 % Basophils % 1 % Neutrophils # 4.6 (1.3-7.7) k/uL Lymphocytes # 1.9 (1.0-4.8) k/uL Monocytes # 0.5 (0-1.0) k/uL Eosinophils # 0.5 (0-0.7) k/uL Basophils # 0.1 (0-0.2) k/uL Sodium 141 (137-145) mmol/L Potassium 4.9 (3.5-5.1) mmol/L Chloride 107 (98-107) mmol/L Carbon Dioxide 26 (22-30) mmol/L Anion Gap 8 mmol/L BUN 12 (7-17) mg/dL Creatinine 0.66 (0.52-1.04) mg/dL Est GFR (CKD-EPI)AfAm >90 (>60 ml/min/1.73 sqM) Est GFR (CKD-EPI)NonAf >90 (>60 ml/min/1.73 sqM) Glucose 101 H (74-99) mg/dL Calcium 10.1 (8.4-10.2) mg/dL Total Bilirubin 0.3 (0.2-1.3) mg/dL AST 22 (14-36) U/L ALT 22 (9-52) U/L Alkaline Phosphatase 76 (38-126) U/L Total Protein 7.9 (6.3-8.2) g/dL Albumin 4.8 (3.5-5.0) g/dL Urine Color Yellow Urine Appearance Cloudy H (Clear) Urine pH 6.5 (5.0-8.0) Ur Specific [place] 1.024 (1.001-1.035) Urine Protein Negative (Negative) Urine Glucose (UA) Negative (Negative) Urine Ketones Negative (Negative) Urine Blood Negative (Negative) Urine Nitrite Negative (Negative) Urine Bilirubin Negative (Negative) Urine Urobilinogen <2.0 (<2.0) mg/dL Ur Leukocyte Esterase Negative (Negative) Urine WBC 2 (0-5) /hpf Ur Squamous Epith Cells 16 H (0-4) /hpf Urine Bacteria Rare H (None) /hpf Urine Mucus Rare H (None) /hpf Disposition Clinical Impression: Abdominal pain, Nausea Disposition: HOME SELF-CARE Condition: Stable Instructions (If sedation given, give patient instructions): Abdominal Pain (ED) Additional Instructions: Please return to the Emergency Department if symptoms worsen or any other concerns. Follow up with GI in 1-2 days if symptoms continue. Is patient prescribed a controlled substance at d/c from ED?: No Referrals: Jason Jameson MD [Primary Care Provider] - 1-2 days Ale Mcneil MD [STAFF PHYSICIAN] - 1-2 days
--- NOTE | 2019-04-06 18:21 | CT ---
EXAMINATION TYPE: CT abdomen pelvis wo con DATE OF EXAM: 04/06/2019 COMPARISON: None HISTORY: RUQ pain with nausea CT DLP: 646.1 mGycm Automated exposure control for dose reduction was used. TECHNIQUE: Helical acquisition of images was performed from the lung bases through the pelvis. FINDINGS: Heart is enlarged. There is some mild linear density at the lingula left upper lobe. The other lung f ields are clear. There is no pleural effusion. There is no pericardial effusion. There is small hiata l hernia. There are clips at the gastric fundus. There are clips from cholecystectomy. Liver shows no focal defect. Spleen appears normal. There is no evidence of pancreatic mass. Appendix appears hemalatha l. There is no adrenal mass. Kidneys have normal size and contour. There is no hydronephrosis. Ureters a re not dilated. There is no retroperitoneal adenopathy. Abdominal aorta is atheromatous. Bladder is almost empty. There is no inguinal hernia. There is no free fluid in the pelvis. There is a large posterior L4-5 disc herniation with also some facet arthropathy and ligament thicken ing with bony spinal stenosis. There is no mesenteric edema. There is no ascites or free air. I see no evidence of a bowel obstructi on. There is no intestinal wall thickening. IMPRESSION: NO SIGN OF ACUTE ABDOMEN AND PELVIS. NORMAL APPENDIX. NO DILATED DUCTS. PREVIOUS SURGERY. L4-5 MODERATE BONY SPINAL STENOSIS.
[2019-04-06 19:17] VITALS: BP 138/70; PULSE 74; TEMP 98
== END 2019-04-06 19:16 | disposition home or self-care (01) ==
LOC: EC 16:06
DX: R10.11 Right upper quadrant pain (principal); R11.0 Nausea; M79.7 Fibromyalgia; K21.9 Gastro-esophageal reflux disease without esophagitis; I10 Essential (primary) hypertension; M19.90 Unspecified osteoarthritis, unspecified site; G47.30 Sleep apnea, unspecified; Z99.89 Dependence on other enabling machines and devices; F32.9 Major depressive disorder, single episode, unspecified; Z87.891 Personal history of nicotine dependence; Z79.891 Long term (current) use of opiate analgesic; Z79.899 Other long term (current) drug therapy; Z88.5 Allergy status to narcotic agent; Z90.710 Acquired absence of both cervix and uterus
CPT/HCPCS: 36415; 80053; 85025; 81001; 74176; 99284; 96374; 96375 ×2; 96361; J1200; J1885; J2270

== ENCOUNTER → 2019-05-31 | Outpatient (CLI) | payer BC, MEDICARE ==
--- NOTE | 2019-05-31 18:57 | CT ---
EXAMINATION TYPE: CT angio chest DATE OF EXAM: 05/31/2019 6:33 PM COMPARISON: 08/15/2017 HISTORY: Cough, fatigue x1 month. Recent onset of nausea/dizziness CT DLP: 351.50 mGycm Automated exposure control for dose reduction was used. CONTRAST: CTA scan of the thorax is performed with IV Contrast, patient injected with 100 mL of Isovue 370, pul monary embolism protocol. . There are 3-D post processed images. FINDINGS: The lungs are clear of infiltrate. There is no evidence of a pulmonary mass. There is no pleural effu jeanne. Heart is slightly enlarged. There is no pericardial effusion. There are no hilar masses. There is no mediastinal adenopathy. Thoracic aorta is intact without evidence of aneurysm or dissection. Th ere is mild wall thickening of the distal esophagus unchanged. There is normal contrast opacification of the pulmonary arteries. There are no filling defects. There is some spurring in the thoracic spine. I see no bony destructive process. IMPRESSION: CARDIOMEGALY. NO EVIDENCE OF PULMONARY EMBOLISM. THERE IS CLEARING OF THE PLEURAL FLUID AND PULMONARY ATELECTASIS COMPARED TO OLD EXAM.
== END | disposition home or self-care (01) ==
LOC: RADCTMAIN 17:42
PROVIDERS: ATTEND Family Medicine
DX: I51.7 Cardiomegaly (principal)
CPT/HCPCS: 71275; Q9967

== ENCOUNTER 2019-08-01 11:35 | Day surgery (SDC) | payer BC, MEDICARE ==
[2019-07-30 16:05] VITALS: BMI 35.4
[~2019-08-01 11:35] MED LIST changes: +ALBUTEROL NEB (CONC) 2.5 MG/0.5 ML INHALATION ONE; -DOBUTamine DRIP for NUC MED 500 MG in DEXTROSE/WATER 1 250ML.BAG IV ONE; +KETOROLAC 30 MG/ML 1 ML VIAL IVP SCH; +LACTATED RINGERS 1,000 ML IV SCH; +LIDOCAINE 1% 20 ML VIAL (10MG/ML) FOR IV START INTRADERMA PRN; +LIDOCAINE 2% (PF) 20 MG/ML 5 ML VIAL INHALATION ONE; +LIDOCAINE VISCOUS 300 MG/15 ML CUP MUCOUS MEM ONE; +ONDANSETRON 4 MG/2 ML VIAL IVP PRN; +SODIUM CHLORIDE 0.9% 1,000 ML IV SCH
[2019-08-01 12:06] LABS: Glucose,Whole Blood 93 mg/dL (75-99)
[2019-08-01 12:07] VITALS: TEMP 97.5
[2019-08-01] MEDS ORDERED: KETAMINE 10 MG/ML 20 ML VIAL ONE (12:36)
[2019-08-01] MEDS ORDERED: LIDOCAINE 1% INJ 10MG/ML (20 ML MDV) ONE (12:36)
[2019-08-01] MEDS ORDERED: MIDAZOLAM 2 MG/2 ML VIAL ONE (12:36)
[2019-08-01] MEDS ORDERED: PROPOFOL 10 MG/ML 20 ML VIAL IV ONE (12:36)
[2019-08-01] MEDS ORDERED: LIDOCAINE 2% INJ 20 MG/ML INTRATRACH ONE (13:06)
--- NOTE | 2019-08-01 13:12 | P.PCN ---
Date of Procedure: 08/01/19 Preoperative Diagnosis: Shortness of breath and cough Postoperative Diagnosis: Extensive inflammatory changes in the left upper lobe/lingular segment, consider left upper lobe pneumonia Procedure(s) Performed: Flexible bronchoscopy, BAL of the left upper lobe Anesthesia: MAC Surgeon: Gin Hoff Estimated Blood Loss (ml): 0 Pathology: other Condition: stable Disposition: same day Operative Findings: This is a flexible bronchoscopy that was done and the endoscopy suite. The patient was having cough congestion and shortness of breath despite being treated with a combination of antibiotics and steroids. The patient was brought in for a flexible bronchoscopy, airway inspection, lavage This procedure was done under conscious sedation. After the patient achieved adequate sedation, the flexible bronchoscope was inserted through the right nostril was advanced to the operating room. Examination of the posterior oropharynx, larynx, arytenoids, vallecula, the vocal cords were all within normal limits. The vocal cords were functional. No nodules or lesions laura ntified. A total of 2 mL of 1% lidocaine was applied to the vocal cords and following that the bronchoscope was advanced in the upper trachea and examination of the airway was done. The tracheobronchial tree included some rest or secretions using a mucous special distal trachea and bilateral mainstem bronchi. The mucous and the rest or secretions were more abundant in the left compared to the right. Regular suctioning was done and the airway inspection was completed. Entire trachea was within normal limits. Lois was sharp in the midline. Based on bronchus, right upper lobe bronchus, bronchus intermedius, right middle lobe bronchus and right lower lobe bronchus were all inspected and they're within normal limits. Exertional left-sided included the left upper lobe bronchus, left lower lobe bronchus and left main stem bronchus. At the level of the distal left mainstem bronchus, there was significant mucosal inflammatory changes special ed the lois them the left upper lobe and the left lower lobe. Lingular segment was quite inflamed and mucosal inflammatory changes were seen circumferentially involving the airway. The 2 segments of the lingula were visualized. Left upper lobe was seen including the apical posterior and anterior segment. Examination of the left lower lobe was within normal limitssegments. A BAL of the lingula was done with a total of 60 mL of fluid was infused and 25-30 mL of fluid was suctioned back. At the completion of the procedure, type regular suctioning was done and the bronchoscope was removed and the patient was stable and she was transferred to recovery. She'll be discharged home. She began a prednisone burst taper. Further antibiotics will be decided upon the results of the bronchioloalveolar lavage was collected today. I think the patient is recovering from a left upper lobe pneumonia knowing that most of the inflammatory changes were seen left upper lobe especially in the lingular segment.
[2019-08-01 13:17] VITALS: RESP 16
[2019-08-01 13:34] VITALS: BP 122/76; PULSE 82
[2019-08-01 16:41] LABS: Appearance,BF Cloudy; Nucleated Cells, Body Fluid 650 /uL; RBC, Body Fluid 1350 /uL
[2019-08-01 16:42] LABS: Mononuclear WBC,Body Fluid 49 %; Polynuclear WBC,Body Fluid 51 %; Total Cells Counted,Body Fluid 100
== END 2019-08-01 14:05 | disposition home or self-care (01) ==
LOC: ORWHC2ENDO 11:35
PROVIDERS: ATTEND Internal Medicine Critical Care Medicine
DX: J18.9 Pneumonia, unspecified organism (principal); G47.33 Obstructive sleep apnea (adult) (pediatric); Z88.5 Allergy status to narcotic agent; Z91.048 Other nonmedicinal substance allergy status; Z87.891 Personal history of nicotine dependence; Z90.710 Acquired absence of both cervix and uterus; Z96.651 Presence of right artificial knee joint; Z98.890 Other specified postprocedural states; Z99.89 Dependence on other enabling machines and devices
CPT/HCPCS: 31624; 94640; 87798 ×3; 87496; 87498; 87529; 88108; 88305; 89050; 87252; 87502; 87634; 87070; 87205; 87116; 87102; 87077; 87186; 87206; J2001 ×3; J2250; J2405; J2704; 31645

== ENCOUNTER 2019-11-13 19:04 | Emergency (ER) | payer MEDICARE ==
[2019-11-13 19:37] VITALS: TEMP 98.1
--- NOTE | 2019-11-13 19:54 | XR ---
EXAMINATION TYPE: XR chest 2V DATE OF EXAM: 11/13/2019 COMPARISON: 09/03/2019 HISTORY: Bacterial infection TECHNIQUE: 2 views FINDINGS: Heart and mediastinum are normal. Lungs are clear. Diaphragm is normal. Bony thorax is inta ct. There is cervical spine fusion surgery. IMPRESSION: No cardiopulmonary disease. No change.
[2019-11-13] MEDS ORDERED: AZITHROMYCIN 500 MG TAB PO STA (22:02)
[2019-11-13] MEDS ORDERED: DEXAMETHASONE SOD PHOSPHATE 10 MG/ML 1 ML VIAL IM STA (22:02)
--- NOTE | 2019-11-13 22:03 | ED ---
URI HPI - General Chief Complaint: Upper Respiratory Infection Stated Complaint: chest cold/congestion Time Seen by Provider: 11/13/19 20:55 Source: patient, RN notes reviewed, old records reviewed Mode of arrival: ambulatory Limitations: no limitations - History of Present Illness Initial Comments: This is a 54 female to the ED co cough and congestion, no SOB and no CP. PAtient has no significant medical history. No fevers, no CP. Patient has history of COPD high blood pressure cholesterol. There is a travel history or sick contacts. Patient symptoms are significantly improved over going on for a few days MD Complaint: cough, sore throat -: days(s) Severity: mild Severity scale (1-10): 2 Consistency: constant Improves With: nothing Worsens With: nothing Context: sick contacts Associated Symptoms: chills, shortness of breath Treatments Prior to Arrival: none - Related Data Home Medications Medication Instructions Recorded Confirmed Baclofen 10 mg PO HS 04/07/15 07/30/19 oxyCODONE HCL [oxyCODONE HCL (IR)] 15 mg PO TID 04/07/15 07/30/19 Dextroamphetamine/Amphetamine 30 mg PO BID 03/17/16 07/30/19 [Adderall] traZODone HCL 150 mg PO HS 03/17/16 07/30/19 DULoxetine HCL [Cymbalta] 90 mg PO HS 08/15/17 07/30/19 Gabapentin 800 mg PO TID 08/15/17 07/30/19 Amitriptyline HCl [Elavil] 25 mg PO HS 05/26/18 07/30/19 methylPREDNISolone [Medrol Dose 4 mg PO DIRECTED 07/30/19 07/30/19 Pack] Previous Rx's Medication Instructions Recorded Azithromycin [Zithromax Z-pack] 0 mg PO DIRECTED #1 pack 11/13/19 Allergies Allergy/AdvReac Type Severity Reaction Status Date / Time morphine Allergy Mild Rash/Hives Verified 11/13/19 19:37 states "can take if benadryl given with it" adhesive Allergy tears skin Verified 11/13/19 19:37 Review of Systems ROS Statement: Those systems with pertinent positive or pertinent negative responses have been documented in the HPI. ROS Other: All systems not noted in ROS Statement are negative. Past Medical History Past Medical History: COPD, Fibromyalgia, GERD/Reflux, Hyperlipidemia, Hypertension, Osteoarthritis (OA), Sleep Apnea/CPAP/BIPAP Additional Past Medical History / Comment(s): states "was told my lungs are shutting down and something is wrong with my diaphragm",HIATAL HERNIA; CPAP @ 7.5L; steroids Jul 2019 History of Any Multi-Drug Resistant Organisms: MRSA Date of last positivie culture/infection: 08/01/19 MDRO Source:: MRSA BRONCH WASH Past Surgical History: Section, Hernia Repair, Hysterectomy, Orthopedic Surgery Additional Past Surgical History / Comment(s): total r knee x2; BILAT CARPAL TUNNEL; KNEE ARTHROSCOPY LEFT;. LEFT OVARIAN CYST removal failed. X5, cervical discectomy 08/2017 Past Anesthesia/Blood Transfusion Reactions: No Reported Reaction Past Psychological History: Depression Smoking Status: Former smoker Past Alcohol Use History: None Reported Past Drug Use History: None Reported - Past Family History Mother Family Medical History: Congestive Heart Failure (CHF) Father Family Medical History: Cancer Additional Family Medical History / Comment(s): COLON General Exam Limitations: no limitations General appearance: alert, in no apparent distress Head exam: Present: atraumatic, normocephalic, normal inspection Eye exam: Present: normal appearance, PERRL, EOMI. Absent: scleral icterus, conjunctival injection, periorbital swelling ENT exam: Present: normal exam, mucous membranes moist Neck exam: Present: normal inspection. Absent: tenderness, meningismus, lym phadenopathy Respiratory exam: Present: normal lung sounds bilaterally. Absent: respiratory distress, wheezes, rales, rhonchi, stridor Cardiovascular Exam: Present: regular rate, normal rhythm, normal heart sounds. Absent: systolic murmur, diastolic murmur, rubs, gallop, clicks GI/Abdominal exam: Present: soft, normal bowel sounds. Absent: distended, tenderness, guarding, rebound, rigid Extremities exam: Present: normal inspection, full ROM, normal capillary refill. Absent: tenderness, pedal edema, joint swelling, calf tenderness Back exam: Present: normal inspection Neurological exam: Present: alert, oriented X3, CN II-XII intact Psychiatric exam: Present: normal affect, normal mood Skin exam: Present: warm, dry, intact, normal color. Absent: rash Course Vital Signs 11/13/19 11/13/19 19:35 22:11 Temperature 98.1 F 98.1 F Pulse Rate 98 94 Respiratory 22 20 Rate Blood Pressure 141/79 138/70 O2 Sat by Pulse 99 99 Oximetry Medical Decision Making - Medical Decision Making 54 female to the ED co cough and congestion, no acute findings and is OK for discharge - Lab Data Lab Results 11/13/19 Range/Units 17:39 Influenza Type A RNA Not Detected (Not Detectd) Influenza Type B (PCR) Not Detected (Not Detectd) - Radiology Data Radiology results: report reviewed (CXR is negative for acute disease), image reviewed Disposition Clinical Impression: Upper respiratory tract infection, Acute upper respiratory infection Disposition: ADMITTED IP TO THIS HOSP Condition: Fair Instructions (If sedation given, give patient instructions): Upper Respiratory Infection (ED) Prescriptions: Azithromycin [Zithromax Z-pack] 0 mg PO DIRECTED #1 pack Is patient prescribed a controlled substance at d/c from ED?: No Referrals: Jason Jameson MD [Primary Care Provider] - 1-2 days
[2019-11-13 22:12] VITALS: BP 138/70; PULSE 94; RESP 20
--- NOTE | 2019-11-26 23:26 | CDI ---
Dear Mukesh Angel DO: Please do addendum clarification whether patients Disposition is "Admitted as IP to this Hospital" or "HOME," as in MDM mentioned "no acute findings and is OK for discharge." Thank you, David Root, Gyn Physician. If you have any questions, please contact Benefits Counselor at [phone]. [facility]
== END 2019-11-13 22:12 | disposition home or self-care (01) ==
LOC: EC 19:04
DX: J06.9 Acute upper respiratory infection, unspecified (principal); J44.9 Chronic obstructive pulmonary disease, unspecified; M79.7 Fibromyalgia; M19.90 Unspecified osteoarthritis, unspecified site; G47.30 Sleep apnea, unspecified; F32.9 Major depressive disorder, single episode, unspecified; Z87.891 Personal history of nicotine dependence; Z88.5 Allergy status to narcotic agent; Z91.048 Other nonmedicinal substance allergy status; Z79.52 Long term (current) use of systemic steroids; Z79.891 Long term (current) use of opiate analgesic; Z79.899 Other long term (current) drug therapy; Z86.14 Personal history of Methicillin resistant Staphylococcus aureus infection; Z96.651 Presence of right artificial knee joint; Z99.89 Dependence on other enabling machines and devices
CPT/HCPCS: 99285; 96372; 87502; 71046; J1100

== ENCOUNTER → 2019-12-04 | Outpatient (CLI) | payer MEDICARE ==
--- NOTE | 2019-12-04 09:27 | US ---
EXAMINATION TYPE: US transvaginal DATE OF EXAM: 12/04/2019 COMPARISON: CT abdomen pelvis dated 04/06/2019 CLINICAL HISTORY: N93.0 POST COITAL AND CONTACT BLEEDING. Partial hysterectomy 2008. Patient states still has ovaries. TECHNIQUE: Transvaginal (TV). Date of LMP: Unknown EXAM MEASUREMENTS: Right Ovary: 3.4 x 2.2 x 2.0 cm 1. Uterus: Surgically absent 2. Endometrium: Surgically absent 3. Right Ovary: follicles seen 4. Left Ovary: Obscured by overlying bowel gas 5. Bilateral Adnexa: no free fluid 6. Posterior cul-de-sac: no free fluid IMPRESSION: Right ovary is within normal limits of size with physiologic follicular change. Surgical absence of the uterus. Nonvisualization of the left ovary due to overlying bowel gas.
== END | disposition home or self-care (01) ==
LOC: RADUSWWP 06:54
PROVIDERS: ATTEND Family Medicine
DX: R10.2 Pelvic and perineal pain (principal); N93.0 Postcoital and contact bleeding; Z90.710 Acquired absence of both cervix and uterus
CPT/HCPCS: 76830

== ENCOUNTER 2019-12-05 19:17 | Emergency (ER) | payer MEDICARE ==
[2019-12-05 19:51] VITALS: BP 130/82; PULSE 91; RESP 20; TEMP 97.9
[2019-12-05] MEDS ORDERED: HYDROmorphone 1 MG/ML 1 ML SYRINGE IM STA (20:59)
--- NOTE | 2019-12-05 21:02 | ED ---
Extremity Problem HPI - General Chief complaint: Extremity Problem,Nontraumatic Stated complaint: left knee pain Time Seen by Provider: 12/05/19 20:31 Source: patient Mode of arrival: wheelchair Limitations: no limitations - History of Present Illness Initial comments: 54-year-old female patient presents to the emergency department today for evaluation of left leg pain and swelling. Patient states for the last 3 days she has had significant left posterior knee pain. States her leg has been swollen as well. Patient states the pain worsens with ambulation or bending. She denies any known injury to the knee. Denies any increase in physical activity. Denies any recent trips or immobility. Denies recent surgery or diagnosis of cancer. She denies personal history of DVT but states they do run in her family. Denies fever or chills. Denies any redness to the leg. Denies numbness or tingling to the leg. States she has taken oxycodone 15mg, Motrin 800mg, and extra strength tylenol without relief. Patient denies any recent rash, shortness breath, chest pain, palpitations, abdominal pain, nausea, vomiting, diarrhea, constipation, back pain, dizziness, weakness, hematuria, dysuria, urinary urgency, urinary frequency, headache, visual changes, or any other complaints. - Related Data Home Medications Medication Instructions Recorded Confirmed Baclofen 10 mg PO HS 04/07/15 07/30/19 oxyCODONE HCL [oxyCODONE HCL (IR)] 15 mg PO TID 04/07/15 07/30/19 Dextroamphetamine/Amphetamine 30 mg PO BID 03/17/16 07/30/19 [Adderall] traZODone HCL 150 mg PO HS 03/17/16 07/30/19 DULoxetine HCL [Cymbalta] 90 mg PO HS 08/15/17 07/30/19 Gabapentin 800 mg PO TID 08/15/17 07/30/19 Amitriptyline HCl [Elavil] 25 mg PO HS 05/26/18 07/30/19 methylPREDNISolone [Medrol Dose 4 mg PO DIRECTED 07/30/19 07/30/19 Pack] Previous Rx's Medication Instructions Recorded Azithromycin [Zithromax Z-pack] 0 mg PO DIRECTED #1 pack 11/13/19 Allergies Allergy/AdvReac Type Severity Reaction Status Date / Time morphine Allergy Mild Rash/Hives Verified 12/05/19 19:51 states "can take if benadryl given with it" adhesive Allergy tears skin Verified 12/05/19 19:51 Review of Systems ROS Statement: Those systems with pertinent positive or pertinent negative responses have been documented in the HPI. ROS Other: All systems not noted in ROS Statement are negative. Past Medical History Past Medical History: COPD, Fibromyalgia, GERD/Reflux, Hyperlipidemia, Hypertension, Osteoarthritis (OA), Sleep Apnea/CPAP/BIPAP Additional Past Medical History / Comment(s): states "was told my lungs are shutting down and something is wrong with my diaphragm",HIATAL HERNIA; CPAP @ 7.5L; steroids Jul 2019 History of Any Multi-Drug Resistant Organisms: MRSA Date of last positivie culture/infection: 08/01/19 MDRO Source:: MRSA BRONCH WASH Past Surgical History: Section, Hernia Repair, Hysterectomy, Orthopedic Surgery Additional Past Surgical History / Comment(s): total r knee x2; BILAT CARPAL TUNNEL; KNEE ARTHROSCOPY LEFT;. LEFT OVARIAN CYST removal failed. X5, cervical discectomy 08/2017 Past Anesthesia/Blood Transfusion Reactions: No Reported Reaction Past Psychological History: Depression Smoking Status: Former smoker Past Alcohol Use History: None Reported Past Drug Use History: None Reported - Past Family History Mother Family Medical History: Congestive Heart Failure (CHF) Father Family Medical History: Cancer Additional Family Medical History / Comment(s): COLON General Exam Limitations: no limitations General appearance: alert, in no apparent distress, other (This is a well- developed, well-nourished adult female patient in no acute distress. Vital signs upon presentation are temperature 97.9F, pulse 91, respirations 20, blood pressure 130/82, pulse ox 97% on room air.) Eye exam: Present: normal appearance, PERRL, EOMI. Absent: scleral icterus, conjunctival injection, periorbital swelling ENT exam: Present: normal exam, normal oropharynx, mucous membranes moist Respiratory exam: Present: normal lung sounds bilaterally. Absent: respiratory distress, wheezes, rales, rhonchi, stridor Cardiovascular Exam: Present: regular rate, normal rhythm, normal heart sounds. Absent: systolic murmur, diastolic murmur, rubs, gallop, clicks Extremities exam: Present: full ROM, normal capillary refill, other (Generalized left leg swelling. Tenderness to the posterior knee. Skin is otherwise pink, warm, dry. Cap refills less than 3 seconds. Pedal and posttibial pulses 2+.). Absent: tenderness, pedal edema, joint swelling, calf tenderness Neurological exam: Present: alert, oriented X3, CN II-XII intact Psychiatric exam: Present: normal affect, normal mood Skin exam: Present: warm, dry, intact, normal color. Absent: rash Course Vital Signs 12/05/19 19:47 Temperature 97.9 F Pulse Rate 91 Respiratory 20 Rate Blood Pressure 130/82 O2 Sat by Pulse 97 Oximetry Medical Decision Making - Medical Decision Making 54-year-old female patient presents to the emergency department today for evaluation of left leg swelling and posterior knee pain. Physical examination did reveal mild generalized swelling. This is nonpitting. There is no erythema or warmth over the knee. She is afebrile with normal vital signs. Ultrasound was obtained and showed no evidence for DVT. No mention of a Coleman cyst. I did discuss findings results with the patient. We discussed knee strain or tendon injury as a cause for her symptoms. She will be discharged to follow up with rn orthopedic. Requested Dr. Bowen that she has seen him for knees in the past. Return parameters discussed in detail. She verbalizes understanding and agrees with this plan. - Radiology Data Radiology results: report reviewed Venous Doppler duplex of the left lower extremity was obtained. Report was reviewed in its entirety. Impression by Dr. Kaplna shows no evidence of left leg deep venous thrombosis. Disposition Clinical Impression: Left knee pain Disposition: HOME SELF-CARE Condition: Good Instructions (If sedation given, give patient instructions): Knee Pain (ED) Additional Instructions: Follow-up with rn orthopedic for further evaluation. Continue all medications as needed for pain. Return to the emergency department for any new, worsening, or concerning symptoms. Is patient prescribed a controlled substance at d/c from ED?: No Referrals: Jason Jameson MD [Primary Care Provider] - 1-2 days Time of Disposition: 22:42
--- NOTE | 2019-12-05 22:20 | US ---
EXAMINATION TYPE: US venous doppler duplex LE LT DATE OF EXAM: 12/05/2019 9:58 PM COMPARISON: RLEV US CLINICAL HISTORY: Left leg swelling/posterior knee pain. Left leg swelling/posterior knee pain x 3 da ys. No hx of DVT. Patient does not take blood thinners. SIDE PERFORMED: Left TECHNIQUE: The lower extremity deep venous system is examined utilizing real time linear array sonog lanette with graded compression, doppler sonography and color-flow sonography. VESSELS IMAGED: External Iliac Vein (EIV) Common Femoral Vein Deep Femoral Vein Greater Saphenous Vein * Femoral Vein Popliteal Vein Small Saphenous Vein * Proximal Calf Veins (* superficial vessels) Left Leg: No evidence of DVT in veins imaged at this time from prox calf veins to EIV. IMPRESSION: No evidence of left leg deep venous thrombosis.
== END 2019-12-05 22:54 | disposition home or self-care (01) ==
LOC: EC 19:17
DX: M25.562 Pain in left knee (principal); M79.89 Other specified soft tissue disorders; J44.9 Chronic obstructive pulmonary disease, unspecified; M79.7 Fibromyalgia; M19.90 Unspecified osteoarthritis, unspecified site; G47.30 Sleep apnea, unspecified; F32.9 Major depressive disorder, single episode, unspecified; Z87.891 Personal history of nicotine dependence; Z88.5 Allergy status to narcotic agent; Z91.048 Other nonmedicinal substance allergy status; Z79.52 Long term (current) use of systemic steroids; Z79.891 Long term (current) use of opiate analgesic; Z79.899 Other long term (current) drug therapy; Z86.14 Personal history of Methicillin resistant Staphylococcus aureus infection; Z99.89 Dependence on other enabling machines and devices
CPT/HCPCS: 99283; 96372; 93971; J1170

== ENCOUNTER → 2019-12-19 | Outpatient (CLI) | payer MEDICARE ==
--- NOTE | 2019-12-20 11:03 | MR ---
EXAMINATION TYPE: MR knee LT wo con DATE OF EXAM: 12/19/2019 COMPARISON: Outside x-ray dated 12/10/2019 HISTORY: Posterior left knee pain, no injury TECHNIQUE: Multiplanar, multisequence imaging of the left knee is performed without IV contrast. FINDINGS: MEDIAL MENISCUS: There is linear signal within the posterior horn medial meniscus suspicious for simp le linear tear. LATERAL MENISCUS: Anterior and posterior horns are intact without tear. CRUCIATE LIGAMENTS: The anterior and posterior cruciate ligaments are intact and unremarkable. COLLATERAL LIGAMENTS: The medial collateral ligament and lateral collateral ligament complex are inta ct and unremarkable. EXTENSOR MECHANISM: Quadriceps and patellar tendons intact. Patellar cartilage maintained. Joint spac e maintained. EFFUSION: There is a moderate amount of fluid in the suprapatellar bursa. POPLITEAL CYST: There is a 1.2 x 1 x 3.6 cm popliteal fossa cyst. TRICOMPARTMENT SPACES: Mild narrowing of the medial compartment knee joint. No erosive changes. Carti kenia appears preserved. BONE MARROW SIGNAL: No focal abnormal marrow signal is appreciated. IMPRESSION: 1. Simple linear tear posterior horn medial meniscus. 2. Moderate amount of fluid in the suprapatellar bursa. 3. No evidence of ligamentous tear. 4. There is a 1.2 x 1 x 3.6 cm popliteal fossa cyst.
== END | disposition home or self-care (01) ==
LOC: RADMRIMAIN 18:44
PROVIDERS: ATTEND Orthopaedic Surgery
DX: S83.242A Other tear of medial meniscus, current injury, left knee, initial encounter (principal); M71.22 Synovial cyst of popliteal space [Baker], left knee

== ENCOUNTER 2020-05-06 08:35 | Day surgery (SDC) | payer MEDICARE ==
[2020-05-01 16:26] VITALS: BMI 34.3
[~2020-05-06 08:35] MED LIST changes: -ALBUTEROL NEB (CONC) 2.5 MG/0.5 ML INHALATION ONE; -KETOROLAC 30 MG/ML 1 ML VIAL IVP SCH; -LIDOCAINE 1% 20 ML VIAL (10MG/ML) FOR IV START INTRADERMA PRN; -LIDOCAINE 2% (PF) 20 MG/ML 5 ML VIAL INHALATION ONE; -LIDOCAINE VISCOUS 300 MG/15 ML CUP MUCOUS MEM ONE; -ONDANSETRON 4 MG/2 ML VIAL IVP PRN; -SODIUM CHLORIDE 0.9% 1,000 ML IV SCH
[2020-05-06 09:01] VITALS: TEMP 97.6
[2020-05-06] MEDS ORDERED: PROPOFOL 10 MG/ML 20 ML VIAL IV ONE (09:30)
--- NOTE | 2020-05-06 09:36 | P.GSHP ---
History of Present Illness H&P Date: 05/06/20 Chief Complaint: Colon cancer screening Patient here today for colonoscopy. Family history of colon cancer in her father. Last colonoscopy 5 years ago was normal. No bowel related complaints. Past Medical History Past Medical History: COPD, Fibromyalgia, GERD/Reflux, Hyperlipidemia, Hypertension, Osteoarthritis (OA), Sleep Apnea/CPAP/BIPAP, Thyroid Disorder Additional Past Medical History / Comment(s): CPAP @ 7.5L; History of Any Multi-Drug Resistant Organisms: MRSA Date of last positivie culture/infection: 08/01/19 MDRO Source:: MRSA BRONCH WASH Past Surgical History: Section, Hernia Repair, Hysterectomy, Orthopedic Surgery Additional Past Surgical History / Comment(s): total r knee x2; BILAT CARPAL TUNNEL; KNEE ARTHROSCOPY LEFT;. LEFT OVARIAN CYST removal failed. X5, cervical discectomy 08/2017 Past Anesthesia/Blood Transfusion Reactions: No Reported Reaction Smoking Status: Former smoker - Past Family History Mother Family Medical History: Congestive Heart Failure (CHF) Father Family Medical History: Cancer Additional Family Medical History / Comment(s): COLON Medications and Allergies Home Medications Medication Instructions Recorded Confirmed Type oxyCODONE HCL [oxyCODONE HCL (IR)] 15 mg PO TID 04/07/15 05/01/20 History Dextroamphetamine/Amphetamine 30 mg PO BID 03/17/16 05/01/20 History [Adderall] Gabapentin 800 mg PO BID 08/15/17 05/01/20 History Amitriptyline HCl [Elavil] 25 mg PO HS 05/26/18 05/01/20 History Ferrous Sulfate [Feosol] 325 mg PO DAILY 05/01/20 05/01/20 History Levothyroxine Sodium [Tirosint] 13 mcg PO DAILY 05/01/20 05/01/20 History Allergies Allergy/AdvReac Type Severity Reaction Status Date / Time morphine Allergy Mild Rash/Hives Verified 05/06/20 08:51 states "can take if benadryl given with it" adhesive Allergy tears skin Verified 05/06/20 08:51 Surgical - Exam Vital Signs Temp Pulse Resp BP Pulse Ox 97.6 F 77 17 166/80 98 05/06/20 09:00 05/06/20 09:00 05/06/20 09:00 05/06/20 09:00 05/06/20 09:00 Physical exam: General: Well-developed, well-nourished HEENT: Normocephalic, sclerae nonicteric Abdomen: Nontender, nondistended Extremities: No edema Neuro: Alert and oriented Assessment and Plan (1) Colon cancer screening Narrative/Plan: Will proceed with colonoscopy at this time. Current Visit: Yes Status: Acute Code(s): Z12.11 - ENCOUNTER FOR SCREENING FOR MALIGNANT NEOPLASM OF COLON SNOMED Code(s): 834549815
--- NOTE | 2020-05-06 09:53 | P.PCN ---
Date of Procedure: 05/06/20 Procedure(s) Performed: PREOPERATIVE DIAGNOSIS: Colon cancer screening, family history POSTOPERATIVE DIAGNOSIS: Normal exam PROCEDURE: Colonoscopy ANESTHESIA: MAC SURGEON: Santos Solano M.D. SPECIMENS: None ENDOSCOPIC PROCEDURE: The patient was placed on the endoscopy table in the left decubitus position. The Olympus colonoscope was inserted into the anus and passed under direct visualization to the base of the cecum. The appendiceal orifice was visualized. From that point the scope was slowly withdrawn inspecting all surfaces carefully. There were no neoplastic inflammatory or polypoid lesions throughout the cecum, ascending, transverse, descending, sigmoid and rectum. There was no diverticulosis noted. Digital rectal examination was normal. The patient was taken to the recovery room in stable condition per anesthesia guidelines. RECOMMENDATIONS: Resume diet. Follow-up colonoscopy 5 years.
[2020-05-06 10:11] VITALS: BP 118/79; PULSE 65; RESP 18
== END 2020-05-06 10:25 | disposition home or self-care (01) ==
LOC: ORWHC2ENDO 08:35
PROVIDERS: ATTEND Surgery
DX: Z12.11 Encounter for screening for malignant neoplasm of colon (principal); D17.79 Benign lipomatous neoplasm of other sites; Z80.0 Family history of malignant neoplasm of digestive organs; J44.9 Chronic obstructive pulmonary disease, unspecified; M79.7 Fibromyalgia; K21.9 Gastro-esophageal reflux disease without esophagitis; E78.5 Hyperlipidemia, unspecified; I10 Essential (primary) hypertension; M19.90 Unspecified osteoarthritis, unspecified site; G47.30 Sleep apnea, unspecified; Z99.89 Dependence on other enabling machines and devices; E07.9 Disorder of thyroid, unspecified; Z86.14 Personal history of Methicillin resistant Staphylococcus aureus infection; Z90.710 Acquired absence of both cervix and uterus; Z98.890 Other specified postprocedural states; Z87.891 Personal history of nicotine dependence; Z82.49 Family history of ischemic heart disease and other diseases of the circulatory system; F98.8 Other specified behavioral and emotional disorders with onset usually occurring in childhood and adolescence; Z91.09 Other allergy status, other than to drugs and biological substances; Z96.651 Presence of right artificial knee joint; Z97.2 Presence of dental prosthetic device (complete) (partial); Z79.890 Hormone replacement therapy; Z79.891 Long term (current) use of opiate analgesic; Z79.899 Other long term (current) drug therapy; Z88.5 Allergy status to narcotic agent; Z88.8 Allergy status to other drugs, medicaments and biological substances
CPT/HCPCS: G0105; J2704; 45378

== ENCOUNTER → 2021-01-01 | Outpatient (CLI) | payer MEDICARE ==
[2021-01-01 18:15] LABS: C Reactive Protein <0.4 mg/dL (0.0-0.8); Rheumatoid Factor, Qnt 4 IU/mL (0-15)
[2021-01-01 18:51] LABS: Basophils # (A) 0.05 X 10*3/uL (0.00-0.10); Basophils % (A) 0.8 %; Eosinophils # (A) 0.35 X 10*3/uL (0.04-0.35); Eosinophils % (A) 5.3 %; HCT 39.5 % (37.2-46.3); HGB 12.1 g/dL (12.0-15.0); Lymphocytes # (A) 2.82 X 10*3/uL (0.90-5.00); Lymphocytes % (A) 42.5 %; MCH 27.4 pg (27.0-32.0); MCHC 30.6 g/dL (32.0-37.0); MCV 89.4 fL (80.0-97.0); Mean Platelet Volume 11.1 fL (9.5-12.2); Monocytes # (A) 0.77 X 10*3/uL (0.20-1.00); Monocytes % (A) 11.6 %; Neutrophils # (A) 2.63 X 10*3/uL (1.80-7.70); Neutrophils % (A) 39.5 %; Platelet Count 411 X 10*3/uL (140-440); RBC 4.42 X 10*6/uL (4.10-5.20); RDW 13.8 % (11.5-14.5); WBC 6.64 X 10*3/uL (4.50-10.00)
[2021-01-01 22:00] LABS: Erythrocyte Sedimentation Rate 16 mm/Hr (0-30)
[2021-01-02 18:59] LABS: HLA B27 NEGATIVE
== END | disposition home or self-care (01) ==
LOC: LABWHC1 09:20
PROVIDERS: ATTEND Orthopaedic Surgery
DX: M25.50 Pain in unspecified joint (principal)
CPT/HCPCS: 36415; 85025; 85652; 86038; 86140; 86431; 86812

== ENCOUNTER 2021-08-17 09:51 | Emergency (ER) | payer MEDICARE ==
[2021-08-17 10:05] VITALS: TEMP 98.4
[2021-08-17] MEDS ORDERED: KETOROLAC 15 MG/ML 1 ML VIAL IM STA (10:11)
[2021-08-17] MEDS ORDERED: GABAPENTIN 300 MG CAP PO STA (10:50)
--- NOTE | 2021-08-17 10:51 | ED ---
Extremity Problem HPI - General Chief complaint: Extremity Problem,Nontraumatic Stated complaint: bilat leg pain Time Seen by Provider: 08/17/21 10:06 Source: patient, RN notes reviewed Mode of arrival: ambulatory - History of Present Illness Initial comments: 56-year-old female that presents to emergency department complaining of bilateral lower extremity burning sensation and heaviness. She notes she does have a history of neuropathy. She is nondiabetic. She notes that she takes gabapentin once a day at night. She denied any injury or trauma to her bilateral lower extremities. He notes that she is able to ambulate with minimal discomfort. She was otherwise well-appearing 56-year-old female in no apparent distress or pain. She denied any chest pain shortness breath headache nausea vomiting diarrhea constipation fever fatigue chills. - Related Data Home Medications Medication Instructions Recorded Confirmed oxyCODONE HCL [oxyCODONE HCL (IR)] 15 mg PO TID 04/07/15 05/01/20 Dextroamphetamine/Amphetamine 30 mg PO BID 03/17/16 05/01/20 [Adderall] Gabapentin 800 mg PO BID 08/15/17 05/01/20 Amitriptyline HCl [Elavil] 25 mg PO HS 05/26/18 05/01/20 Ferrous Sulfate [Feosol] 325 mg PO DAILY 05/01/20 05/01/20 Levothyroxine Sodium [Tirosint] 13 mcg PO DAILY 05/01/20 05/01/20 Allergies Allergy/AdvReac Type Severity Reaction Status Date / Time morphine Allergy Mild Rash/Hives Verified 08/17/21 10:05 states "can take if benadryl given with it" adhesive Allergy tears skin Verified 08/17/21 10:05 Review of Systems ROS Statement: Those systems with pertinent positive or pertinent negative responses have been documented in the HPI. ROS Other: All systems not noted in ROS Statement are negative. Past Medical History Past Medical History: COPD, Fibromyalgia, GERD/Reflux, Hyperlipidemia, Hypertension, Osteoarthritis (OA), Sleep Apnea/CPAP/BIPAP, Thyroid Disorder Additional Past Medical History / Comment(s): CPAP @ 7.5L; History of Any Multi-Drug Resistant Organisms: MRSA Date of last positivie culture/infection: 08/01/19 MDRO Source:: MRSA BRONCH WASH Past Surgical History: Section, Hernia Repair, Hysterectomy, Orthopedic Surgery Additional Past Surgical History / Comment(s): total r knee x2; BILAT CARPAL TUNNEL; KNEE ARTHROSCOPY LEFT;. LEFT OVARIAN CYST removal failed. X5, cervical discectomy 08/2017 Past Anesthesia/Blood Transfusion Reactions: No Reported Reaction Past Psychological History: Depression Smoking Status: Never smoker Past Alcohol Use History: None Reported Past Drug Use History: None Reported - Past Family History Mother Family Medical History: Congestive Heart Failure (CHF) Father Family Medical History: Cancer Additional Family Medical History / Comment(s): COLON General Exam General appearance: alert, in no apparent distress, obese Head exam: Present: atraumatic, normocephalic, normal inspection Eye exam: Present: normal appearance, PERRL, EOMI. Absent: scleral icterus, conjunctival injection, periorbital swelling Neck exam: Present: normal inspection Respiratory exam: Present: normal lung sounds bilaterally. Absent: respiratory distress, wheezes, rales, rhonchi, stridor Cardiovascular Exam: Present: regular rate, normal rhythm, normal heart sounds. Absent: systolic murmur, diastolic murmur, rubs, gallop, clicks Extremities exam: Present: normal inspection, full ROM, normal capillary refill. Absent: tenderness, pedal edema, joint swelling, calf tenderness Neurological exam: Present: alert, oriented X3 Expanded Cerebellar function: Heel to Crooks: Normal Sensory exam: Upper Extremity Light Touch: Normal, Lower Extremity Light Touch: Normal Motor strength exam: RUE: 5, LUE: 5, RLE: 5, LLE: 5 Psychiatric exam: Present: normal affect, normal mood Skin exam: Present: warm, dry, intact, normal color. Absent: rash Course Vital Signs 08/17/21 10:02 Temperature 98.4 F Pulse Rate 88 Respiratory 17 Rate Blood Pressure 154/81 O2 Sat by Pulse 100 Oximetry Medical Decision Making - Medical Decision Making 56-year-old female complaining of bilateral lower extremities burning and heaviness. Given patient's history of neuropathy and negative physical exam patient be instructed to double of gabapentin once the morning once at night. Patient had no calf tenderness obvious edema swelling or tenderness of the bilateral lower extremities. 600 mg gabapentin ordered. Patient does have gabapentin at home and will follow up primary care. Case discussed with Dr. Samayoa, patient follow-up with primary care for worsening neuropathy. Disposition Clinical Impression: Neuropathy, Bilateral leg pain Disposition: HOME SELF-CARE Condition: Stable Instructions (If sedation given, give patient instructions): Peripheral Neuropathy (ED) Additional Instructions: Please return to the Emergency Department if symptoms worsen or any other concerns. Follow-up with primary care discuss increasing her gabapentin to 2 times a day instead of once at night. Is patient prescribed a controlled substance at d/c from ED?: No Referrals: Jason Jameson MD [Primary Care Provider] - 1-2 days Time of Disposition: 10:51
[2021-08-17 12:17] VITALS: RESP 18
[2021-08-17 12:19] VITALS: BP 124/83; PULSE 77
== END 2021-08-17 12:20 | disposition home or self-care (01) ==
LOC: EC 09:51
DX: G62.9 Polyneuropathy, unspecified (principal); E78.5 Hyperlipidemia, unspecified; I10 Essential (primary) hypertension; J44.9 Chronic obstructive pulmonary disease, unspecified; G47.30 Sleep apnea, unspecified; K21.9 Gastro-esophageal reflux disease without esophagitis; M19.90 Unspecified osteoarthritis, unspecified site; F32.9 Major depressive disorder, single episode, unspecified; M79.7 Fibromyalgia; Z88.8 Allergy status to other drugs, medicaments and biological substances
CPT/HCPCS: 99283; 96372; J1885

== ENCOUNTER → 2021-09-21 | Outpatient (CLI) | payer MEDICARE ==
--- NOTE | 2021-09-22 02:01 | MR ---
EXAMINATION TYPE: MR knee LT wo con DATE OF EXAM: 09/21/2021 COMPARISON: 12/19/2019 HISTORY: Left knee pain, injury 2 mos ago. Multiplanar multiecho imaging of the left knee without contrast. There is knee joint effusion. The anterior and posterior cruciate ligaments are intact. Lateral menis cus is intact. There is horizontal tear through the posterior horn medial meniscus that extends to th e posterior surface. There is some mild osteoarthritic narrowing of the medial joint space. The collateral ligaments appear intact. There is no evidence of a fracture. I see no bony destructive process. There is a popliteal cyst measuring 5 x 1.4 cm. IMPRESSION: Moderate joint effusion. Popliteal cyst. Horizontal tear posterior horn of the medial meniscus. No evidence of ligamentous tear. Minor osteoarthritis.
== END | disposition home or self-care (01) ==
LOC: RADMRIMAIN 19:34
PROVIDERS: ATTEND Orthopaedic Surgery
DX: M17.12 Unilateral primary osteoarthritis, left knee (principal); M71.22 Synovial cyst of popliteal space [Baker], left knee; M23.222 Derangement of posterior horn of medial meniscus due to old tear or injury, left knee

== ENCOUNTER → 2021-11-16 | Outpatient (CLI) | payer MEDICARE ==
[2021-11-16 15:46] LABS: Basophils % (A) 1 %; Eosinophils # (A) 0.2 k/uL (0-0.7); Eosinophils % (A) 3 %; HCT 39.1 % (34.0-46.0); HGB 12.7 gm/dL (11.4-16.0); Lymphocytes # (A) 2.1 k/uL (1.0-4.8); Lymphocytes % (A) 29 %; MCH 28.7 pg (25.0-35.0); MCHC 32.4 g/dL (31.0-37.0); MCV 88.5 fL (80.0-100.0); Mean Platelet Volume 8.3; Monocytes # (A) 0.5 k/uL (0-1.0); Monocytes % (A) 6 %; Neutrophils # (A) 4.4 k/uL (1.3-7.7); Neutrophils % (A) 60 %; Platelet Count 402 k/uL (150-450); RBC 4.42 m/uL (3.80-5.40); RDW 12.8 % (11.5-15.5); WBC 7.3 k/uL (3.8-10.6)
[2021-11-16 16:01] LABS: Potassium 4.2 mmol/L (3.5-5.1)
== END | disposition home or self-care (01) ==
LOC: LABPAT 14:46
PROVIDERS: ATTEND Orthopaedic Surgery
DX: Z01.812 Encounter for preprocedural laboratory examination (principal)
CPT/HCPCS: 36415; 80051; 85025

== ENCOUNTER 2021-11-20 09:56 | Day surgery (SDC) | payer MEDICARE ==
[2021-11-13 10:15] VITALS: BMI 30.9
--- NOTE | 2021-11-19 11:04 | HP ---
HISTORY AND PHYSICAL CHIEF COMPLAINT: Left knee pain. HISTORY OF PRESENT ILLNESS: The patient is a 56-year-old female on disability who presents with progressive left knee pain for the past 6 months. It has worsened recently. She notes painful catching, locking and giving out. She also notes stiffness and swelling. She has tried medications in addition to an injection, with only partial temporary relief. PAST MEDICAL HISTORY: Significant for chronic low back pain. PAST SURGICAL HISTORY: Significant for bilateral carpal tunnel release, hernia repair, gallbladder removal, hysterectomy. CURRENT MEDICATIONS: Adderall, amitriptyline, gabapentin and ibuprofen. ALLERGIES: MORPHINE and ADHESIVE BANDAGES. FAMILY HISTORY: Significant for cancer. SOCIAL HISTORY: Negative for current tobacco or alcohol use. REVIEW OF SYSTEMS: Sixteen-point review of systems otherwise reviewed and is noncontributory. PHYSICAL EXAMINATION: On examination, the patient is approximately 5 feet 3 inches, 180 pounds of endomorphic habitus. HEENT exam is nonfocal. Neck is supple. She has painless passive motion of her left hip. Straight-leg raise is negative. Active motion of left knee minus 17 to 70 degrees of flexion. She has a moderate effusion. She is tender about the medial joint line. Collaterals are stable, Eri is negative, Atilio's is equivocal. She has genu varum alignment. Her distal neurovascular exam appears intact in the left lower extremity. MRI report left knee 09/21/2021 shows evidence of a posteromedial meniscal tear along with a large effusion. IMPRESSION: Internal derangement of left knee with symptomatic medial meniscal tear. RECOMMENDATIONS: I talked to the patient at length regarding her condition along with treatment options. At this point she is having persistent pain and mechanical symptoms despite conservative measures. After thorough discussion, she opts to proceed with surgery. We will plan to proceed with arthroscopic evaluation of her left knee with probable partial medial meniscectomy. We will likely perform that as an outpatient procedure. Risks and benefits were discussed at length in layman's terms. MMODL / IJN: [id number] /
[~2021-11-20 09:56] MED LIST changes: +DEXAMETHASONE SOD PHOSPHATE 4 MG/ML 1 ML VIAL IV ONE; +HYDROmorphone 0.5 MG/0.5 ML SYRINGE IVP PRN; +LIDOCAINE 1% (10MG/ML) FOR IV START INTRADERMA PRN; +MIDAZOLAM 2 MG/2 ML VIAL IV PRN; +ONDANSETRON 4 MG/2 ML VIAL IVP ONE
[2021-11-20] MEDS ORDERED: PROPOFOL 10 MG/ML 20 ML VIAL IV ONE (10:58)
[2021-11-20] MEDS ORDERED: LIDOCAINE 1% INJ 10MG/ML (20 ML MDV) ONE (10:58)
[2021-11-20] MEDS ORDERED: fentaNYL (PF) 50 MCG/ML 2 ML AMP ONE (10:58)
[2021-11-20] MEDS ORDERED: MIDAZOLAM 2 MG/2 ML VIAL ONE (10:58)
[2021-11-20] MEDS ORDERED: KETOROLAC 15 MG/ML 1 ML VIAL ONE (10:58)
[2021-11-20] MEDS ORDERED: SUCCINYLCHOLINE CHLORIDE 100 MG/5 ML SYR IV ONE (10:58)
[2021-11-20] MEDS ORDERED: EPINEPHrine (PF) 1 ML in SODIUM CHLORIDE 0.9% IRRIGATIO 3,000 ML IRRIGATION ONE ×4 (11:01)
--- NOTE | 2021-11-20 11:45 | P.OP ---
Date of Procedure: 11/20/21 Preoperative Diagnosis: Left knee internal derangement Postoperative Diagnosis: Left knee posterior medial meniscal tear/grade 3 chondral injury posterior central medial femoral condyle Procedure(s) Performed: Left knee arthroscopic partial medial meniscectomy/medial femoral chondrectomy/microfracture medial femoral condyle Anesthesia: EMMA Surgeon: Gamaliel Theodore Estimated Blood Loss (ml): 10 Pathology: none sent Condition: stable Disposition: PACU Indications for Procedure: Of the risks and benefits of operative intervention versus continued conservative measures was made with the patient. She opted to proceed with surgery. Operative risks to include infection, neurovascular injury, development of blood clots, possible incomplete resolution of symptoms, possible worsening symptoms and need for subsequent procedures was discussed. Informed consent was obtained. Operative Findings: As below Description of Procedure: The patient was brought to the operating room, and after induction of general anesthesia examined the left knee. Collaterals were stable, Eri was negative, and posterior drawer was negative. The left lower extremity was prepped and draped in a normal fashion. A superior lateral portal was made through a 3 mm skin incision superior and lateral to the patella. This was used for outflow. A lateral portal was made through a 5 mm vertical skin incision lateral to the patella tendon above the joint line. Diagnostic arthroscopy was performed. On inspection of the medial compartment, and oblique tear involving the posterior horn of the medial meniscus in the white-red junction was noted.. This was debrided back to stable base with straight baskets and a motorized shaver. A grade 3/4 chondral defect was noted involving the posterior central portion of the medial femoral condyle. There were loose chondral flaps debrided back to stable base with a motorized shaver. Microfracture was performed with a power pick breeching the subchondral surface down to the bone marrow elements. On inspection of the notch, the anterior cruciate ligament appeared to be intact. On inspection of the lateral compartment, there were diffuse grade 2 chondral changes however no loose chondral fragments.. On inspection of the patellofemoral articulation, there was chondral fibrillation however no loose chondral fragments. The gutters were clear debris. The knee was then thoroughly irrigated. The portals were closed with Steri-Strips. A sterile dressing was applied in addition to a compression stocking. The patient was awoken from general anesthesia and transferred to recovery room in good condition. Blood loss was estimated at 10 mL. No complications were incurred.
[2021-11-20 11:56] VITALS: TEMP 97.2
[2021-11-20 12:47] VITALS: PULSE 75
[2021-11-20] MEDS ORDERED: HYDROmorphone 0.5 MG/0.5 ML SYRINGE IVP ONE (12:55)
[2021-11-20 13:41] VITALS: BP 140/66; RESP 18
== END 2021-11-20 13:45 | disposition home or self-care (01) ==
LOC: OR 09:56
PROVIDERS: ATTEND Orthopaedic Surgery
DX: S83.242A Other tear of medial meniscus, current injury, left knee, initial encounter (principal)
CPT/HCPCS: 29881; 27332; J2250; J1100; J0690; J2405; J0171; J2001; J3010; J1885; J0330; J2704; J1170

== ENCOUNTER 2022-01-29 15:52 | Emergency (ER) | payer MEDICARE, OTHER ==
--- NOTE | 2022-01-29 18:51 | XR ---
EXAMINATION TYPE: XR chest 2V DATE OF EXAM: 01/29/2022 6:00 PM COMPARISON: 11/13/2019 TECHNIQUE: XR chest 2V Frontal and lateral views of the chest. CLINICAL INDICATION:Female, 57 years old with history of productive cough; FINDINGS: Lungs/Pleura: There is no evidence of pleural effusion, focal consolidation, or pneumothorax. Pulmonary vascularity: Unremarkable. Heart/mediastinum: Cardiomediastinal silhouette is unremarkable. Musculoskeletal: No acute osseous pathology. There is fixation hardware in the lower cervical spine. Multilevel disc degeneration changes. IMPRESSION: No acute cardiopulmonary disease/process.
[2022-01-29] MEDS ORDERED: SOTROVIMAB (EUA) 500 MG in SODIUM CHLORIDE 0.9% 100 ML IVPB ONE (19:00)
[2022-01-29] MEDS ORDERED: SODIUM CHLORIDE 0.9% 50 ML IVPB ONE (19:00)
--- NOTE | 2022-01-29 19:29 | ED ---
General Adult HPI - General Chief complaint: ENT Stated complaint: Covid+, SOB Time Seen by Provider: 01/29/22 17:20 Source: patient Mode of arrival: ambulatory - History of Present Illness Initial comments: Patient is a 57-year-old female presenting to the emergency department after testing positive for Covid. Patient has been experiencing a cough and when reported to her physician that she tested positive at home they advised her to obtain monoclonal antibodies. Cough is nonproductive. No pleuritic chest pain. Patient takes nebulized albuterol at home as needed. Patient denies chest pain, fever, chills, nausea, vomiting, abdominal pain, headache, vision or hearing changes, weakness, palpitations, dizziness, syncope. - Related Data Home Medications Medication Instructions Recorded Confirmed Levothyroxine Sodium 25 mcg PO DAILY 11/19/21 11/20/21 oxyCODONE HCL [oxyCODONE HCL (IR)] 30 mg PO Q6H 11/19/21 11/20/21 Atorvastatin Calcium [Lipitor] 20 mg PO HS 01/29/22 01/29/22 Dextroamphetamine/Amphetamine 30 mg PO BID 01/29/22 01/29/22 [Adderall] Previous Rx's Medication Instructions Recorded Albuterol Nebulized [Ventolin 2.5 mg INHALATION Q6H PRN 6 Days 01/29/22 Nebulized] #75 ml Clotrimazole Cream [Lotrimin Cream] 1 applic TOPICAL BID 28 Days #30 gm 01/29/22 Fluconazole [Diflucan] 150 mg PO ONCE #2 tab 01/29/22 Allergies Allergy/AdvReac Type Severity Reaction Status Date / Time morphine Allergy Mild Rash/Hives Verified 01/29/22 18:21 states "can take if benadryl given with it" adhesive Allergy tears skin Verified 01/29/22 18:21 Review of Systems ROS Statement: Those systems with pertinent positive or pertinent negative responses have been documented in the HPI. ROS Other: All systems not noted in ROS Statement are negative. Past Medical History Past Medical History: COPD, Fibromyalgia, GERD/Reflux, Hyperlipidemia, Hypertension, Osteoarthritis (OA), Sleep Apnea/CPAP/BIPAP, Thyroid Disorder Additional Past Medical History / Comment(s): CPAP @ 7.5L; History of Any Multi-Drug Resistant Organisms: MRSA Date of last positivie culture/infection: 08/01/19 MDRO Source:: MRSA BRONCH WASH Past Surgical History: Section, Hernia Repair, Hysterectomy, Joint Replacement, Orthopedic Surgery Additional Past Surgical History / Comment(s): total r knee x2; BILAT CARPAL TUNNEL; KNEE ARTHROSCOPY LEFT;. LEFT OVARIAN CYST removal failed. X5, cervical discectomy 08/2017 Past Anesthesia/Blood Transfusion Reactions: No Reported Reaction Past Psychological History: ADD/ADHD, Depression Smoking Status: Former smoker, Never smoker Past Alcohol Use History: None Reported Past Drug Use History: None Reported - Past Family History Mother Family Medical History: Congestive Heart Failure (CHF) Father Family Medical History: Cancer Additional Family Medical History / Comment(s): COLON General Exam Limitations: no limitations General appearance: alert, in no apparent distress Head exam: Present: atraumatic, normocephalic, normal inspection Eye exam: Present: normal appearance, PERRL, EOMI. Absent: scleral icterus, conjunctival injection, periorbital swelling ENT exam: Present: normal exam, mucous membranes moist Neck exam: Present: normal inspection Respiratory exam: Present: normal lung sounds bilaterally. Absent: respiratory distress, wheezes, rales, rhonchi, stridor Cardiovascular Exam: Present: regular rate, normal rhythm, normal heart sounds. Absent: systolic murmur, diastolic murmur, rubs, gallop, clicks Extremities exam: Present: normal inspection, full ROM, normal capillary refill. Absent: tenderness, pedal edema, joint swelling, calf tenderness Neurological exam: Present: alert, oriented X3, CN II-XII intact Psychiatric exam: Present: normal affect, normal mood Skin exam: Present: warm, dry, intact, normal color. Absent: rash Course Vital Signs 01/29/22 16:04 Temperature 98.1 F Pulse Rate 92 Respiratory 18 Rate Blood Pressure 146/82 O2 Sat by Pulse 98 Oximetry Medical Decision Making - Medical Decision Making Patient is 57 year old female presenting for evaluation after testing positive for Covid at home. Patient has a history of COPD. Patient has been experiencing a cough for the last 3 days, she was advised by her PCP to report to the ER for monoclonal antibodies. On exam lungs are clear to auscultation. Chest x-ray shows no acute cardiopulmonary process. Rapid Covid test is positive. Patient received monoclonal antibodies. Additionally patient is complaining of a rash underneath the abdominal apron. Rash has been present for about a week, it is red and Byrns states the patient on inspection there is a sizable rash underneath the abdominal apron, it is erythematous and irritated on palpation. I prescribed the patient clotrimazole cream apply twice a day for 4 weeks. And fluconazole 150 mg once a week for 2 weeks. I also refilled the patient's nebulized albuterol. Follow-up with PCP in one to 2 days. Educated on return parameters And alarm symptoms. Report to the ER with any worsening symptoms or new onset alarming symptoms. Answered all questions. Patient conveyed verbal understanding and agreed to the plan. I discussed the case with my attending Dr. Morillo - Lab Data Lab Results 01/29/22 Range/Units 17:39 Coronavirus (PCR) Detected A (Not Detectd) - Radiology Data Radiology results: report reviewed Chest x-ray: No acute cardiopulmonary process Disposition Clinical Impression: COVID-19 Disposition: HOME SELF-CARE Condition: Good Instructions (If sedation given, give patient instructions): COVID-19 and Chronic Health Conditions (ED), COVID-19 (Coronavirus Disease 2019) (ED), How to Recover from COVID-19 at Home (ED) Prescriptions: Fluconazole [Diflucan] 150 mg PO ONCE #2 tab Clotrimazole Cream [Lotrimin Cream] 1 applic TOPICAL BID 28 Days #30 gm Albuterol Nebulized [Ventolin Nebulized] 2.5 mg INHALATION Q6H PRN 6 Days #75 ml PRN Reason: Shortness Of Breath Is patient prescribed a controlled substance at d/c from ED?: No Referrals: Jason Jameson MD [Primary Care Provider] - 1-2 days Time of Disposition: 19:52
[2022-01-29 20:19] VITALS: BP 142/73; PULSE 83; RESP 16; TEMP 99
== END 2022-01-29 20:18 | disposition home or self-care (01) ==
LOC: EC 15:52
DX: U07.1 COVID-19 (principal); J44.9 Chronic obstructive pulmonary disease, unspecified; I10 Essential (primary) hypertension; E78.5 Hyperlipidemia, unspecified; K21.9 Gastro-esophageal reflux disease without esophagitis; F32.A Depression, unspecified; F90.9 Attention-deficit hyperactivity disorder, unspecified type; M19.90 Unspecified osteoarthritis, unspecified site; Z87.891 Personal history of nicotine dependence; Z79.890 Hormone replacement therapy; Z79.899 Other long term (current) drug therapy
CPT/HCPCS: 87635; 71046; 99283; Q0247

== ENCOUNTER 2022-12-03 23:52 | Observation (INO) | payer BC, MEDICARE ==
[2022-12-04] MEDS ORDERED: ASPIRIN 81 MG PO STA (00:42)
[2022-12-04] MEDS ORDERED: KETOROLAC 15 MG/ML 1 ML VIAL IVP STA (00:42)
[2022-12-04] MEDS ORDERED: ORPHENADRINE 30 MG/ML 2 ML VIAL IM STA (00:44)
--- NOTE | 2022-12-04 00:49 | ED ---
General Adult HPI - General Chief complaint: Chest Pain Stated complaint: Chest Pain Time Seen by Provider: 12/04/22 00:16 Source: patient, RN notes reviewed, old records reviewed Mode of arrival: wheelchair Limitations: no limitations - History of Present Illness Initial comments: Nontoxic-appearing 57-year-old female presents to the emergency room with complaint of midsternal chest pain that radiates to her left arm started when she was shoveling snow yesterday. Denies any nausea vomiting or shortness of breath. He is a previous smoker. No cardiac history. Does have hypertension, high cholesterol, COPD, fibromyalgia, chronic neck pain and leg pain from previous surgeries, -: days(s) (1) Location: chest Radiation: extremity (left arm) Severity scale (1-10): 10 Quality: stabbing Consistency: constant Improves with: none Worsens with: movement Associated Symptoms: denies other symptoms Treatments Prior to Arrival: other (Oxycodone) - Related Data Home Medications Medication Instructions Recorded Confirmed Levothyroxine Sodium 25 mcg PO DAILY 11/19/21 01/29/22 oxyCODONE HCL [oxyCODONE HCL (IR)] 30 mg PO QID PRN 11/19/21 01/29/22 Atorvastatin Calcium [Lipitor] 20 mg PO HS 01/29/22 01/29/22 Dextroamphetamine/Amphetamine 30 mg PO BID 01/29/22 01/29/22 [Adderall] Previous Rx's Medication Instructions Recorded Albuterol Nebulized [Ventolin 2.5 mg INHALATION Q6H PRN 6 Days 01/29/22 Nebulized] #75 ml Clotrimazole Cream [Lotrimin Cream] 1 applic TOPICAL BID 28 Days #30 gm 01/29/22 Fluconazole [Diflucan] 150 mg PO ONCE #2 tab 01/29/22 Allergies Allergy/AdvReac Type Severity Reaction Status Date / Time morphine Allergy Mild Rash/Hives Verified 01/29/22 18:21 states "can take if benadryl given with it" adhesive Allergy tears skin Verified 01/29/22 18:21 Review of Systems ROS Statement: Those systems with pertinent positive or pertinent negative responses have been documented in the HPI. ROS Other: All systems not noted in ROS Statement are negative. Past Medical History Past Medical History: COPD, Fibromyalgia, GERD/Reflux, Hyperlipidemia, Hypertension, Osteoarthritis (OA), Sleep Apnea/CPAP/BIPAP, Thyroid Disorder Additional Past Medical History / Comment(s): CPAP @ 7.5L; History of Any Multi-Drug Resistant Organisms: MRSA Date of last positivie culture/infection: 08/01/19 MDRO Source:: MRSA BRONCH WASH Past Surgical History: Section, Hernia Repair, Hysterectomy, Joint Replacement, Orthopedic Surgery Additional Past Surgical History / Comment(s): total r knee x2; BILAT CARPAL TUNNEL; KNEE ARTHROSCOPY LEFT;. LEFT OVARIAN CYST removal failed. X5, cervical discectomy 08/2017 Past Anesthesia/Blood Transfusion Reactions: No Reported Reaction Past Psychological History: ADD/ADHD, Depression Smoking Status: Former smoker, Never smoker Past Alcohol Use History: None Reported Past Drug Use History: None Reported - Past Family History Mother Family Medical History: Congestive Heart Failure (CHF) Father Family Medical History: Cancer Additional Family Medical History / Comment(s): COLON General Exam Limitations: no limitations General appearance: alert, in no apparent distress Head exam: Present: atraumatic Eye exam: Present: normal appearance. Absent: scleral icterus, conjunctival injection, periorbital swelling, periorbital tenderness Respiratory exam: Present: normal lung sounds bilaterally. Absent: respiratory distress, accessory muscle use Cardiovascular Exam: Present: regular rate GI/Abdominal exam: Present: soft Extremities exam: Absent: normal capillary refill Back exam: Absent: tenderness, CVA tenderness (R), CVA tenderness (L), rash noted Neurological exam: Present: alert, oriented X3 Psychiatric exam: Present: anxious (tearful) Skin exam: Present: warm, dry, normal color. Absent: cyanosis, diaphoretic, petechiae, pallor Course Vital Signs 12/04/22 12/04/22 00:22 00:29 Pulse Rate 82 Pulse Rate [ 81 Manufacturing Sales Representative ] Respiratory 20 Rate Blood Pressure 136/80 O2 Sat by Pulse 97 Oximetry EKG Findings - EKG Results: EKG: sinus rhythm (Sinus rhythm with a ventricular rate of 84, VT interval 0.183, QRS 0.87, QTC 0.385, normal axis) Medical Decision Making - Medical Decision Making Patient presents with chest pain after shoveling snow yesterday. Been persistent for the past 24 hours. Denies any diaphoresis, no nausea vomiting diarrhea or cough. Heart score is low. History of COPD, fibromyalgia, hypertension, hyperlipidemia, obstructive sleep apnea Patient was given aspirin, Toradol and Norflex with minimal relief of her pain. EKG shows no acute changes compared to old. Electrolytes unremarkable. Troponin is negative at 0.012. Chest x-ray interpreted by me shows no focal consolidation, trachea midline. Radiologist interpretation no active cardiopulmonary disease. Normal heart no change compared to old 01/29/2022 Patient will be admitted, trending troponins and cardiology consult for atypical chest pain. Patient is agreeable to this plan of care. Case discussed with Dr. Angel. Dr. Velasco notified. Was pt. sent in by a medical professional or institution? @ -no Did you speak to anyone other than the patient for history? @ -no Did you review nursing and triage notes? @ -yes i agree Were old charts reviewed? @ -yes old EKG Differential Diagnosis? @ -Differential Chest Pain: Stable Angina, Unstable Angina, STEMI, NSTEMI Aortic Dissection, Pneumothorax, Musculoskeletal, Esophageal Spasm GERD, Cholecystitis, Pancreatitis, Zoster, this is not meant to be an all-inclusive list. EKG interpreted by me (3pts min.)? @ -yes as above X-rays interpreted by me (1pt min.)? @ -yes as above CT interpreted by me (1pt min.)? @ -[none] U/S interpreted by me (1pt. min.)? @ -[none] What testing was considered but not performed? (CT, X-rays, U/S, labs)? Why? @ none What meds were considered but not given? Why? @ -none Did you discuss the management of the patient with other professionals? @ -none Did you reconcile home meds? @ -no Was smoking cessation discussed for >3mins.? @ -n/a Was critical care preformed (if so, how long)? @ -no Were there social determinants of health that impacted care today? How? (Homeles sness, low income, unemployed, alcoholism, drug addiction, transportation, low edu. Level, literacy, decrease access to med. care, half-way, rehab)? @ -none Was there de-escalation of care discussed even if they declined? (Discuss DNR or withdrawal of care, Hospice)? @ -no What co-morbidities impacted this encounter? (DM, HTN, Smoking, COPD, CAD, Cancer, CVA, Hep., AIDS, mental health diagnosis, sleep apnea, morbid obesity)? @ -COPD, fibromyalgia, hypertension, hyperlipidemia, obstructive sleep apnea Was patient admitted / discharged? @ -admitted Undiagnosed new problem with uncertain prognosis? @ -[none] Drug Therapy requiring intensive monitoring for toxicity (Heparin, Nitro, Insulin, Cardizem)? @ -none Were any procedures done? @ -no Diagnosis/symptom? @ -Atypical Chest pain Acute, or Chronic, or Acute on Chronic? @ -acute Uncomplicated (without systemic symptoms) or Complicated (systemic symptoms)? @ -Complicated Side effects of treatment? @ -[none] Exacerbation, Progression, or Severe Exacerbation] @ -[no] Poses a threat to life or bodily function? @ -[no] - Lab Data Result diagrams: 12/04/22 01:07 12/04/22 01:07 Lab Results 12/04/22 12/04/22 12/04/22 Range/Units 01:07 01:07 01:07 WBC 7.9 (3.8-10.6) k/uL RBC 4.09 (3.80-5.40) m/uL Hgb 11.1 L (11.4-16.0) gm/dL Hct 34.1 (34.0-46.0) % MCV 83.4 (80.0-100.0) fL MCH 27.1 (25.0-35.0) pg MCHC 32.5 (31.0-37.0) g/dL RDW 13.5 (11.5-15.5) % Plt Count 337 (150-450) k/uL MPV 8.7 Neutrophils % 58 % Lymphocytes % 30 % Monocytes % 8 % Eosinophils % 3 % Basophils % 1 % Neutrophils # 4.6 (1.3-7.7) k/uL Lymphocytes # 2.4 (1.0-4.8) k/uL Monocytes # 0.6 (0-1.0) k/uL Eosinophils # 0.2 (0-0.7) k/uL Basophils # 0.0 (0-0.2) k/uL PT 10.1 (9.0-12.0) sec INR 1.0 (<1.2) APTT 25.8 (22.0-30.0) sec Sodium 139 (137-145) mmol/L Potassium 4.2 (3.5-5.1) mmol/L Chloride 103 (98-107) mmol/L Carbon Dioxide 29 (22-30) mmol/L Anion Gap 7 mmol/L BUN 13 (7-17) mg/dL Creatinine 0.72 (0.52-1.04) mg/dL Est GFR (CKD-EPI)AfAm >90 (>60 ml/min/1.73 sqM) Est GFR (CKD-EPI)NonAf >90 (>60 ml/min/1.73 sqM) Glucose 94 (74-99) mg/dL Calcium 8.9 (8.4-10.2) mg/dL Magnesium 1.7 (1.6-2.3) mg/dL Total Bilirubin 0.4 (0.2-1.3) mg/dL AST 21 (14-36) U/L ALT 17 (4-34) U/L Alkaline Phosphatase 60 (38-126) U/L Troponin I (0.000-0.034) ng/mL Total Protein 6.7 (6.3-8.2) g/dL Albumin 4.0 (3.5-5.0) g/dL 12/04/22 Range/Units 01:07 WBC (3.8-10.6) k/uL RBC (3.80-5.40) m/uL Hgb (11.4-16.0) gm/dL Hct (34.0-46.0) % MCV (80.0-100.0) fL MCH (25.0-35.0) pg MCHC (31.0-37.0) g/dL RDW (11.5-15.5) % Plt Count (150-450) k/uL MPV Neutrophils % % Lymphocytes % % Monocytes % % Eosinophils % % Basophils % % Neutrophils # (1.3-7.7) k/uL Lymphocytes # (1.0-4.8) k/uL Monocytes # (0-1.0) k/uL Eosinophils # (0-0.7) k/uL Basophils # (0-0.2) k/uL PT (9.0-12.0) sec INR (<1.2) APTT (22.0-30.0) sec Sodium (137-145) mmol/L Potassium (3.5-5.1) mmol/L Chloride (98-107) mmol/L Carbon Dioxide (22-30) mmol/L Anion Gap mmol/L BUN (7-17) mg/dL Creatinine (0.52-1.04) mg/dL Est GFR (CKD-EPI)AfAm (>60 ml/min/1.73 sqM) Est GFR (CKD-EPI)NonAf (>60 ml/min/1.73 sqM) Glucose (74-99) mg/dL Calcium (8.4-10.2) mg/dL Magnesium (1.6-2.3) mg/dL Total Bilirubin (0.2-1.3) mg/dL AST (14-36) U/L ALT (4-34) U/L Alkaline Phosphatase (38-126) U/L Troponin I <0.012 (0.000-0.034) ng/mL Total Protein (6.3-8.2) g/dL Albumin (3.5-5.0) g/dL Disposition Clinical Impression: Atypical chest pain Disposition: ADMITTED IP TO THIS [facility] Referrals: Jason Jameson MD [Primary Care Provider] - 1-2 days Decision Date: 12/04/22 Decision Time: 00:42
[2022-12-04 01:13] LABS: Basophils % (A) 1 %; Eosinophils # (A) 0.2 k/uL (0-0.7); Eosinophils % (A) 3 %; HCT 34.1 % (34.0-46.0); HGB 11.1 gm/dL (11.4-16.0); Lymphocytes # (A) 2.4 k/uL (1.0-4.8); Lymphocytes % (A) 30 %; MCH 27.1 pg (25.0-35.0); MCHC 32.5 g/dL (31.0-37.0); MCV 83.4 fL (80.0-100.0); Mean Platelet Volume 8.7; Monocytes # (A) 0.6 k/uL (0-1.0); Monocytes % (A) 8 %; Neutrophils # (A) 4.6 k/uL (1.3-7.7); Neutrophils % (A) 58 %; Platelet Count 337 k/uL (150-450); RBC 4.09 m/uL (3.80-5.40); RDW 13.5 % (11.5-15.5); WBC 7.9 k/uL (3.8-10.6)
[2022-12-04 01:21] LABS: Partial Thromboplastin Time 25.8 sec (22.0-30.0); Prothrombin Time 10.1 sec (9.0-12.0)
[2022-12-04 01:29] LABS: ALT 17 U/L (4-34); AST 21 U/L (14-36); African American GFR (CKD) >90 (>60 ml/min/1.73 sqM); Alkaline Phosphatase 60 U/L (38-126); Anion Gap 7 mmol/L; Blood Urea Nitrogen 13 mg/dL (7-17); Calcium 8.9 mg/dL (8.4-10.2); Carbon Dioxide 29 mmol/L (22-30); Chloride 103 mmol/L (98-107); Glucose 94 mg/dL (74-99); Magnesium 1.7 mg/dL (1.6-2.3); Non-African American GFR(CKD) >90 (>60 ml/min/1.73 sqM); Potassium 4.2 mmol/L (3.5-5.1); Sodium 139 mmol/L (137-145); Total Bilirubin 0.4 mg/dL (0.2-1.3); Total Protein 6.7 g/dL (6.3-8.2)
--- NOTE | 2022-12-04 01:38 | XR ---
EXAMINATION TYPE: XR chest 2V DATE OF EXAM: 12/04/2022 COMPARISON: 01/29/2022 HISTORY: Chest pain TECHNIQUE: 2 view FINDINGS: Heart is normal. Lungs are clear of consolidation. There are no hilar masses. Bony thorax i s intact. There are chest leads. No pleural effusion. IMPRESSION: No active cardiopulmonary disease. Normal heart. No change.
[2022-12-04] MEDS ORDERED: NALOXONE 0.4 MG/ML 1 ML VIAL IV PRN (02:13)
[2022-12-04] MEDS ORDERED: ACETAMINOPHEN TAB 325 MG TAB PO PRN (02:22)
[2022-12-04] MEDS ORDERED: ALBUTEROL NEBULIZED 2.5 MG/3 ML INHALATION PRN (02:41)
[2022-12-04 08:51] VITALS: BP 129/68; PULSE 64; RESP 17; TEMP 98.2
--- NOTE | 2022-12-04 10:47 | P.HPIM ---
History of Present Illness H&P Date: 12/04/22 Chief Complaint: Chest pain on exertion Patient was struggling still developed midsternal chest pain, continue our patient denies diaphoresis and shortness of breath denies other symptoms has a known history of hypertension fibromyalgia rheumatica, no history of heart disease no family history of heart disease vital signs are stable patient is afebrile and all 3 troponins are completely normal Review of Systems Constitutional: Reports as per HPI Ears, nose, mouth and throat: Reports as per HPI Cardiovascular: Reports chest pain (On extreme exertion while shoveling snow) Respiratory: Reports as per HPI Gastrointestinal: Reports as per HPI Genitourinary: Reports as per HPI Menstruation: Reports postmenopausal Musculoskeletal: Reports myalgias (Known history of fibromyalgia rheumatica) Integumentary: Reports as per HPI Neurological: Reports as per HPI Past Medical History Past Medical History: COPD, Fibromyalgia, GERD/Reflux, Hyperlipidemia, Hypertension, Osteoarthritis (OA), Sleep Apnea/CPAP/BIPAP, Thyroid Disorder Additional Past Medical History / Comment(s): CPAP @ 7.5L; History of Any Multi-Drug Resistant Organisms: MRSA Date of last positivie culture/infection: 08/01/19 MDRO Source:: MRSA BRONCH WASH Past Surgical History: Section, Hernia Repair, Hysterectomy, Joint Replacement, Orthopedic Surgery Additional Past Surgical History / Comment(s): total r knee x2; BILAT CARPAL TUNNEL; KNEE ARTHROSCOPY LEFT;. LEFT OVARIAN CYST removal failed. X5, cervical discectomy 08/2017, neck surgery Past Anesthesia/Blood Transfusion Reactions: No Reported Reaction Past Psychological History: ADD/ADHD, Depression Smoking Status: Former smoker, Never smoker Past Alcohol Use History: None Reported Additional Past Alcohol Use History / Comment(s): QUIT SMOKING AT AGE 46 . SMOKED SINCE AGE 14 SMOKED 2PPD Past Drug Use History: None Reported - Past Family History Mother Family Medical History: Congestive Heart Failure (CHF) Father Family Medical History: Cancer Additional Family Medical History / Comment(s): COLON Medications and Allergies Home Medications Medication Instructions Recorded Confirmed Type Levothyroxine Sodium 25 mcg PO DAILY 11/19/21 01/29/22 History oxyCODONE HCL [oxyCODONE HCL (IR)] 30 mg PO QID PRN 11/19/21 01/29/22 History Albuterol Nebulized [Ventolin 2.5 mg INHALATION Q6H PRN 6 Days 01/29/22 Rx Nebulized] #75 ml Atorvastatin Calcium [Lipitor] 20 mg PO HS 01/29/22 01/29/22 History Clotrimazole Cream [Lotrimin Cream] 1 applic TOPICAL BID 28 Days #30 gm 01/29/22 Rx Dextroamphetamine/Amphetamine 30 mg PO BID 01/29/22 01/29/22 History [Adderall] Fluconazole [Diflucan] 150 mg PO ONCE #2 tab 01/29/22 Rx Allergies Allergy/AdvReac Type Severity Reaction Status Date / Time morphine Allergy Mild Rash/Hives Verified 01/29/22 18:21 states "can take if benadryl given with it" adhesive Allergy tears skin Verified 01/29/22 18:21 Physical Exam Osteopathic Statement: *. No significant issues noted on an osteopathic structural exam other than those noted in the History and Physical/Consult. Vitals: Vital Signs Temp Pulse Pulse Pulse Resp BP BP 12/04/22 08:34 12/04/22 07:00 98.2 F 64 17 129/68 12/04/22 03:39 77 18 132/76 12/04/22 03:30 98.4 F 66 17 130/79 12/04/22 00:29 81 12/04/22 00:22 82 20 136/80 Pulse Ox 12/04/22 08:34 96 12/04/22 07:00 98 12/04/22 03:39 98 12/04/22 03:30 99 12/04/22 00:29 12/04/22 00:22 97 Intake and Output 12/03/22 12/04/22 12/04/22 22:59 06:59 14:59 Other: # Voids 0 Weight 79.379 kg General: [Patient awake, alert and oriented times 3. Patient in no acute distress.] HEENT: [PERRL. EOMI. No pharyngeal erythema or exudate.] Neck: [No adenopathy.] Cardiac: [Heart regular in rate and rhythm. No S3. No S4. No clicks, rubs. No murmur.] Lungs: [Clear to auscultation bilaterally.] Abdomen: [No mass. No organomegaly. Bowel sounds presnt and normoactive in all 4 quadrants.] Extremes: [No edema no cyanosis no claudication normal pulses] : Normal female genitalia Musculoskeletal: [No joint erythema, edema or tenderness.] Skin: [No rash.] Neurologic: [No lateralizing deficits. CN II - XII grossly intact.] Lymphatic: [No adenopathy.] Results CBC & Chem 7: 12/04/22 01:07 12/04/22 01:07 Labs: Abnormal Lab Results - Last 24 Hours (Table) 12/04/22 Range/Units 01:07 Hgb 11.1 L (11.4-16.0) gm/dL Thrombosis Risk Factor Assmnt - DVT/VTE Prophylaxis DVT/VTE Prophylaxis: Low risk, early ambulation encouraged - Choose All That Apply Any of the Below Risk Factors Present?: Yes Each Factor Represents 1 point: Abnormal pulmonary function (COPD), Age 41-60 years, Obesity (BMI >25) Other Risk Factors: No Other congenital or acquired thrombophilia - If yes, enter type in comment: No Thrombosis Risk Factor Assessment Total Risk Factor Score: 3 Thrombosis Risk Factor Assessment Level: Moderate Risk Assessment and Plan (1) Polymyalgia rheumatica syndrome Current Visit: Yes Status: Acute Code(s): M35.3 - POLYMYALGIA RHEUMATICA SNOMED Code(s): 54667693 (2) Atypical chest pain Current Visit: Yes Status: Acute Code(s): R07.89 - OTHER CHEST PAIN SNOMED Code(s): 355236938 Plan: Cardiology consult was obtained Serial troponins negative Waiting on cardiology consultation Anticipate discharge home later today Time with Patient: Greater than 30
--- NOTE | 2022-12-04 11:17 | P.DS ---
Providers Date of admission: 12/04/22 03:09 Expected date of discharge: 12/04/22 Attending physician: Jason Jameson Consults: 12/04/22 02:22 Consult Physician Routine Consulting Provider: Rajinder Singletary Consult Reason/Comments: chest pain Do you want consulting provider notified?: Yes, Notify in am Primary care physician: Jason Jameson - Discharge Diagnosis(es) (1) Polymyalgia rheumatica syndrome Current Visit: Yes Status: Acute (2) Atypical chest pain Current Visit: Yes Status: Acute Hospital Course: see H&P Patient Condition at Discharge: Good Plan - Discharge Summary Discharge Rx Participant: No New Discharge Prescriptions: No Action oxyCODONE HCL [oxyCODONE HCL (IR)] 30 mg PO QID PRN PRN Reason: Pain Levothyroxine Sodium 25 mcg PO DAILY Clotrimazole Cream [Lotrimin Cream] 1 applic TOPICAL BID 28 Days #30 gm Albuterol Nebulized [Ventolin Nebulized] 2.5 mg INHALATION Q6H PRN 6 Days #75 ml PRN Reason: Shortness Of Breath Fluconazole [Diflucan] 150 mg PO ONCE #2 tab Dextroamphetamine/Amphetamine [Adderall] 30 mg PO BID Atorvastatin Calcium [Lipitor] 20 mg PO HS Discharge Medication List Levothyroxine Sodium 25 mcg PO DAILY 11/19/21 [History] oxyCODONE HCL [oxyCODONE HCL (IR)] 30 mg PO QID PRN 11/19/21 [History] Albuterol Nebulized [Ventolin Nebulized] 2.5 mg INHALATION Q6H PRN 6 Days #75 ml 01/29/22 [Rx] Atorvastatin Calcium [Lipitor] 20 mg PO HS 01/29/22 [History] Clotrimazole Cream [Lotrimin Cream] 1 applic TOPICAL BID 28 Days #30 gm 01/29/22 [Rx] Dextroamphetamine/Amphetamine [Adderall] 30 mg PO BID 01/29/22 [History] Fluconazole [Diflucan] 150 mg PO ONCE #2 tab 01/29/22 [Rx] Follow up Appointment(s)/Referral(s): Jason Jameson MD [Primary Care Provider] - 1-2 days
--- NOTE | 2022-12-04 13:43 | P.CRDCN ---
History of Present Illness Consult date: 12/04/22 Requesting physician: Ryland Velasco Jr Reason for Consult (text): chest pain Chief complaint: chest pain History of present illness: This a pleasant 57-year-old female patient who does not follow regularly with cardiology. Has a history of hypertension that resolved after weight loss, hyperlipidemia, fibromyalgia, hypothyroidism. Presented to the emergency department with complaints of chest pain. She apparently had been shoveling some snow developed some chest discomfort the following day that progressively got worse significantly increased with using her chest muscles and with palpa tion also worse with deep inspiration. Presented to the emergency department EKG is not available at the time of my examination. Troponins have been negative 3. Chest x-ray showed no active cardiopulmonary disease, normal heart, no change. Vital signs are stable. She's been afebrile. She is m aintaining sinus mechanism on the monitor. Continues to have significant chest discomfort with pushing herself up out of bed and palpation of the chest wall. Denies any shortness of breath, orthopnea or PND. She has edema every evening resolved in the morning. She denies any palpitations, dizziness or lightheadedness. She's had no nausea or vomiting. Past Medical History Past Medical History: COPD, Fibromyalgia, GERD/Reflux, Hyperlipidemia, Hypertens ion, Osteoarthritis (OA), Sleep Apnea/CPAP/BIPAP, Thyroid Disorder Additional Past Medical History / Comment(s): CPAP @ 7.5L; History of Any Multi-Drug Resistant Organisms: MRSA Date of last positivie culture/infection: 08/01/19 MDRO Source:: MRSA BRONCH WASH Past Surgical History: Section, Hernia Repair, Hysterectomy, Joint Replacement, Orthopedic Surgery Additional Past Surgical History / Comment(s): total r knee x2; BILAT CARPAL TUNNEL; KNEE ARTHROSCOPY LEFT;. LEFT OVARIAN CYST removal failed. X5, cervical discectomy 08/2017, neck surgery Past Anesthesia/Blood Transfusion Reactions: No Reported Reaction Past Psychological History: ADD/ADHD, Depression Smoking Status: Former smoker, Never smoker Past Alcohol Use History: None Reported Additional Past Alcohol Use History / Comment(s): QUIT SMOKING AT AGE 46 . SMOKED SINCE AGE 14 SMOKED 2PPD Past Drug Use History: None Reported - Past Family History Mother Family Medical History: Congestive Heart Failure (CHF) Father Family Medical History: Cancer Additional Family Medical History / Comment(s): COLON Medications and Allergies Home Medications Medication Instructions Recorded Confirmed Type oxyCODONE HCL [oxyCODONE HCL (IR)] 30 mg PO QID PRN 11/19/21 12/04/22 History Dextroamphetamine/Amphetamine 30 mg PO BID 01/29/22 12/04/22 History [Adderall] Fenofibrate (Unknown Strength) 1 dose PO DIRECTED 12/04/22 12/04/22 History Zinc Gluconate [Zinc] 50 mg PO DAILY 12/04/22 12/04/22 History Allergies Allergy/AdvReac Type Severity Reaction Status Date / Time morphine Allergy Mild Rash/Hives Verified 12/04/22 12:53 states "can take if benadryl given with it" adhesive Allergy tears skin Verified 12/04/22 12:53 Physical Exam Vitals: Vital Signs Temp Pulse Pulse Pulse Resp BP BP 12/04/22 08:34 12/04/22 07:00 98.2 F 64 17 129/68 12/04/22 03:39 77 18 132/76 12/04/22 03:30 98.4 F 66 17 130/79 12/04/22 00:29 81 12/04/22 00:22 82 20 136/80 Pulse Ox 12/04/22 08:34 96 12/04/22 07:00 98 12/04/22 03:39 98 12/04/22 03:30 99 12/04/22 00:29 12/04/22 00:22 97 Intake and Output 12/03/22 12/04/22 12/04/22 22:59 06:59 14:59 Other: # Voids 0 Weight 79.379 kg PHYSICAL EXAMINATION: This is a 57-year-old female in no apparent distress at the time of my examination. HEENT: Head is atraumatic, normocephalic. Pupils are equal, round. Sclerae anicteric. Conjunctivae are clear. Mucous membranes of the mouth are moist. Neck is supple. There is no elevated jugular venous pressure. No carotid bruit is heard. CHEST EXAMINATION: Clear to auscultation bilaterally. No wheezes rales or rhonchi. Respirations even and nonlabored. Significant chest wall tenderness to palpation. HEART EXAMINATION: Heart regular, positive S1 and S2. No S3. No S4. No clicks, rubs or murmurs. ABDOMEN: Soft, nontender. Bowel sounds are heard. No organomegaly noted. EXTREMITIES: 2+ peripheral pulses with no evidence of peripheral edema and no calf tenderness noted. NEUROLOGIC EXAMINATION: Patient is awake, alert and oriented x3. Results 12/04/22 01:07 12/04/22 01:07 Cardiac Enzymes 12/04/22 12/04/22 12/04/22 Range/Units 01:07 01:07 05:02 AST 21 (14-36) U/L Troponin I <0.012 <0.012 (0.000-0.034) ng/mL 12/04/22 Range/Units 07:55 AST (14-36) U/L Troponin I <0.012 (0.000-0.034) ng/mL Coagulation 12/04/22 Range/Units 01:07 PT 10.1 (9.0-12.0) sec APTT 25.8 (22.0-30.0) sec CBC 12/04/22 Range/Units 01:07 WBC 7.9 (3.8-10.6) k/uL RBC 4.09 (3.80-5.40) m/uL Hgb 11.1 L (11.4-16.0) gm/dL Hct 34.1 (34.0-46.0) % Plt Count 337 (150-450) k/uL Comprehensive Metabolic Panel 12/04/22 Range/Units 01:07 Sodium 139 (137-145) mmol/L Potassium 4.2 (3.5-5.1) mmol/L Chloride 103 (98-107) mmol/L Carbon Dioxide 29 (22-30) mmol/L BUN 13 (7-17) mg/dL Creatinine 0.72 (0.52-1.04) mg/dL Glucose 94 (74-99) mg/dL Calcium 8.9 (8.4-10.2) mg/dL AST 21 (14-36) U/L ALT 17 (4-34) U/L Alkaline Phosphatase 60 (38-126) U/L Total Protein 6.7 (6.3-8.2) g/dL Albumin 4.0 (3.5-5.0) g/dL Current Medications Generic Name Dose Route Start Last Admin Trade Name Freq PRN Reason Stop Dose Admin Acetaminophen 650 mg 12/04/22 02:22 Acetaminophen Tab 325 Mg Tab PO Q6HR PRN Mild Pain or Fever > 100.5 Albuterol Sulfate 2.5 mg 12/04/22 02:41 Albuterol Nebulized 2.5 Mg/3 Ml INHALATION Q6H PRN Shortness Of Breath Naloxone HCl 0.2 mg 12/04/22 02:13 Naloxone 0.4 Mg/Ml 1 Ml Vial IV Q2M PRN Opioid Reversal Oxycodone HCl 30 mg 12/04/22 06:19 12/04/22 09:57 Oxycodone Hcl 5 Mg Tab PO 30 mg QID PRN Administration Pain Intake and Output 12/03/22 12/04/22 12/04/22 22:59 06:59 14:59 Other: # Voids 0 Weight 79.379 kg 12/04/22 01:07 12/04/22 01:07 EKG Interpretations (text) Unavailable Assessment and Plan Assessment: #1 symptoms of chest pain, acute coronary event has been ruled out, likely musculoskeletal #2 hypertension, resolved completely loss #3 hyperlipidemia #4 fibromyalgia Plan: From cardiology perspective acute coronary event has been ruled out, chest discomfort likely musculoskeletal. We will obtain a 2-D echo with Doppler study to assess cardiac structure and function. There is no significant abnormalities patient may be discharged home to follow-up as an outpatient weeks. She may require outpatient stress testing. [employer] note has been reviewed, I agree with a documented findings and plan of care. Patient was seen and examined.
--- NOTE | 2022-12-04 14:50 | CA ---
Transthoracic Echo Report Name: Ivana Jerry Age: 57 Gender: F : 1965 Exam Date: 12/04/2022 11:30 Exam Location: [facility] Ht (in): 63 Wt (lb): 175 Ordering Physician: Niels Lopez Attending/Referring Phys: Bruise Trimmer Lauren Vogel RDCS Procedure CPT: Indications: Chest Pain Cardiac Hx: Technical Quality: Fair Contrast 1: Total Dose (mL): Contrast 2: Total Dose (mL): MEASUREMENTS (Male / Female) Normal Values 2D ECHO LV Diastolic Diameter PLAX 4.8 cm 4.2 - 5.9 / 3.9 - 5.3 cm LV Systolic Diameter PLAX 2.5 cm IVS Diastolic Thickness 1.1 cm 0.6 - 1.0 / 0.6 - 0.9 cm LVPW Diastolic Thickness 1.1 cm 0.6 - 1.0 / 0.6 - 0.9 cm LV Relative Wall Thickness 0.5 RV Internal Dim ED PLAX 2.2 cm LA Volume 48.2 cm??? 18 - 58 / 22 - 52 cm??? M-MODE Aortic Root Diameter MM 2.0 cm LA Systolic Diameter MM 3.9 cm LA Ao Ratio MM 2.0 AV Cusp Separation MM 1.4 cm DOPPLER AV Peak Velocity 130.4 cm/s AV Peak Gradient 6.8 mmHg AV Mean Velocity 102.9 cm/s AV Mean Gradient 4.4 mmHg AV Velocity Time Integral 32.1 cm LVOT Peak Velocity 108.6 cm/s LVOT Peak Gradient 4.7 mmHg LVOT Velocity Time Integral 26.4 cm MV Area PHT 2.9 cm??? Mitral E Point Velocity 100.9 cm/s Mitral A Point Velocity 72.4 cm/s Mitral E to A Ratio 1.4 MV Deceleration Time 259.6 ms MV E' Velocity 7.9 cm/s Mitral E to MV E' Ratio 12.7 TR Peak Velocity 244.2 cm/s TR Peak Gradient 23.8 mmHg Right Ventricular Systolic Press 28.2 mmHg FINDINGS Left Ventricle Mildly increased septal wall thickness. Mildly increased posterior wall thickness. Normal left ventricular systolic function with no obvious regional wall motion abnormalities. Left ventricular ejection fraction is estimated at 55-60 %. Normal left ventricular diastolic filling pattern. Left ventricular cavity size normal. Right Ventricle Normal right ventricular size and function. Right ventricular systolic pressure within normal limits. Right Atrium Normal right atrial size. Left Atrium Normal left atrial size. Mitral Valve Structurally normal mitral valve. mild mitral regurgitation. Aortic Valve Trileaflet aortic valve. No aortic valve stenosis or regurgitation. Tricuspid Valve Structurally normal tricuspid valve. Mild tricuspid regurgitation. Pulmonic Valve Pulmonic valve not well visualized. Pericardium No pericardial effusion. Aorta Normal size aortic root and proximal ascending aorta. CONCLUSIONS 1. Normal size and systolic function 2. Mild mitral and tricuspid regurgitation Previewed by: Dr. Torsten Amanda MD (Electronically Signed) Final Date: 04 December 2022 14:49
== END 2022-12-04 13:36 | disposition home or self-care (01) ==
LOC: EC 23:52 → 6NMEDSUR 12-04 03:09
PROVIDERS: ADMIT Family Medicine; ATTEND Family Medicine
DX: R07.89 Other chest pain (principal); M35.3 Polymyalgia rheumatica; E78.5 Hyperlipidemia, unspecified; E78.00 Pure hypercholesterolemia, unspecified; J44.9 Chronic obstructive pulmonary disease, unspecified; M79.7 Fibromyalgia; G89.29 Other chronic pain; M54.2 Cervicalgia; M79.606 Pain in leg, unspecified; F32.A Depression, unspecified; K21.9 Gastro-esophageal reflux disease without esophagitis; M19.90 Unspecified osteoarthritis, unspecified site; E03.9 Hypothyroidism, unspecified; Z86.14 Personal history of Methicillin resistant Staphylococcus aureus infection; Z98.891 History of uterine scar from previous surgery; Z90.710 Acquired absence of both cervix and uterus; Z96.651 Presence of right artificial knee joint; Z98.890 Other specified postprocedural states; F90.9 Attention-deficit hyperactivity disorder, unspecified type; Z87.891 Personal history of nicotine dependence; Z82.49 Family history of ischemic heart disease and other diseases of the circulatory system; Z80.0 Family history of malignant neoplasm of digestive organs; Z79.890 Hormone replacement therapy; Z79.899 Other long term (current) drug therapy; Z88.5 Allergy status to narcotic agent; Z91.09 Other allergy status, other than to drugs and biological substances
CPT/HCPCS: 96374; 99285; 36415; 94760; 93306; 80053; 83735; 84484; 85025; 85610; 85730; 71046; G0378; J2360; J1885

== ENCOUNTER → 2023-04-06 | Outpatient (CLI) | payer MEDICARE ==
--- NOTE | 2023-04-06 18:06 | US ---
EXAMINATION TYPE: US pelvis complete transvag DATE OF EXAM: 04/06/2023 COMPARISON: NONE CLINICAL INDICATION: Female, 58 years old with history of N83.202 CYST OF LEFT OVARY; Pain and bleedi ng with intercourse x 1 yr TECHNIQUE: Transvaginal (TV) and Transabdominal (TA) . Transabdominal sonographic images of the pel vis were acquired. Transvaginal sonographic images were medically necessary to better assess the fol lowing anatomy: Ovaries Date of LMP: post-brian EXAM MEASUREMENTS: Uterus: Surgically absent Endometrial Stripe: Surgically absent Right Ovary: 2.4x1.7x2.3 cm Left Ovary: unable to visualize 1. Uterus: Surgically absent 2. Endometrium: Surgically absent 3. Right Ovary: wnl 4. Left Ovary: Obscured by overlying bowel gas 5. Bilateral Adnexa: Obscured by overlying bowel gas 6. Posterior cul-de-sac: wnl Respiratory Care Practitioner notes: Exam limited due to overlying bowel gas IMPRESSION: Status post hysterectomy. The right ovary is visualized and shows no gross abnormality. Left ovary is obscured by bowel gas.
== END | disposition home or self-care (01) ==
LOC: RADUSWWP 10:15
PROVIDERS: ATTEND Family Medicine
DX: N83.202 Unspecified ovarian cyst, left side (principal); Z90.710 Acquired absence of both cervix and uterus
CPT/HCPCS: 76830; 76856

== ENCOUNTER → 2023-10-14 | Outpatient (CLI) | payer MEDICARE ==
--- NOTE | 2023-10-14 15:04 | XR ---
EXAMINATION TYPE: XR chest 2V, XR clavicle 2 views RT DATE OF EXAM: 10/14/2023 COMPARISON: 11/26/2022 HISTORY: 58-year-old female mass near right clavicle for one month FINDINGS: Chest: ACDF hardware. The cardiomediastinal silhouette, aorta, and pulmonary vasculature are within normal l imits. Density at the cardiac apex likely epicardial fat pad. Otherwise, lungs and pleural spaces are clear. Right clavicle: There is moderate degenerative change at the AC joint. Prominent marginal spurring. No acute fracture or dislocation. IMPRESSION: 1. Chest: No acute cardiopulmonary process. 2. Right clavicle: Moderate AC joint OA with prominent marginal spurring especially projecting superi rush. No acute osseous abnormality seen.
== END | disposition home or self-care (01) ==
LOC: RADXRMAIN 12:06
PROVIDERS: ATTEND Family Medicine
DX: M19.011 Primary osteoarthritis, right shoulder (principal); R22.2 Localized swelling, mass and lump, trunk
CPT/HCPCS: 71046

== ENCOUNTER → 2023-11-22 | Outpatient (CLI) | payer MEDICARE ==
[2023-11-22 18:58] LABS: DHEA Sulfate <39.0 UG/DL (39.0-800.0)
[2023-11-22 19:22] LABS: Estradiol <20.0 pg/mL; Testosterone <10.00 ng/dL (7.00-45.62)
[2023-11-22 19:24] LABS: Follicle Stimulating Hormone 87.3 mIU/mL
== END | disposition home or self-care (01) ==
LOC: LABWHC1 14:01
PROVIDERS: ATTEND Family Medicine
DX: N95.9 Unspecified menopausal and perimenopausal disorder (principal)
CPT/HCPCS: 36415; 82627; 82670; 83001; 84144; 84403

== ENCOUNTER → 2023-12-01 | Outpatient (CLI) | payer MEDICARE ==
--- NOTE | 2023-12-02 09:35 | US ---
EXAMINATION TYPE: US mass soft tissue chest/back DATE OF EXAM: 12/01/2023 COMPARISON: XR 10/14/2023 CLINICAL INDICATION: Female, 58 years old with history of R222 CHEST WALL MASS; Right clavicle lump x 2 months - appeared overnight; No injury or previous cancer or radiation TECHNIQUE: FINDINGS: There is focal bony protuberance at medial margin of the right clavicle at the sternoclavi cular joint. An area of 1.4 cm hypoechogenicity adjacent to the bony protuberance likely reflects a thickened joint capsule or synovitis. IMPRESSION: Bony hypertrophy at the right sternoclavicular joint appears to correspond to the site of patient's l ump. There is hyperostotic change and also capsular thickening or joint synovitis here. Correlate for any pain related to sternoclavicular joint OA.
== END | disposition home or self-care (01) ==
LOC: RADUSWWP 16:08
PROVIDERS: ATTEND Family Medicine
DX: M65.88 Other synovitis and tenosynovitis, other site (principal); M89.311 Hypertrophy of bone, right shoulder

== ENCOUNTER → 2024-05-04 | Outpatient (CLI) | payer MEDICARE ==
--- NOTE | 2024-05-08 09:11 | MM ---
Reason for Exam: Screening (asymptomatic). Last mammogram was performed 4 year(s) and 4 month(s) ago. Patient History: Menarche at age 12. First Full-Term at age 17. Hysterectomy at age 44. Postmenopausal. Risk Values: Neyda 5 year model risk: 1.1%. NCI Lifetime model risk: 6.1%. Prior Study Comparison: 07/27/2011 Left Diagnostic Mammogram, [facility]. 04/24/2014 Screening Mammogram, [facility]. 12/26/2019 Bilateral Screening Mammogram, [facility]. Tissue Density: The breasts are heterogeneously dense, which may obscure small masses. Findings: Analyzed By CAD. There is no suspicious group of microcalcifications or new suspicious mass in either breast. Benign-appearing calcification. Chronic nodularity posterior aspect of the right breast. Overall Assessment: Benign, BI-RAD 2 Management: Screening Mammogram of both breasts in 1 year. . Patient should continue monthly self-breast exams. A clinical breast exam by your physician is recommended on an annual basis. This exam should not preclude additional follow-up of suspicious palpable abnormalities. Note on Neyda scores and lifetime risk: 1. A Neyda score greater than 3% is considered moderate risk. If this is the case, consider specialist referral to assess eligibility for a risk reducing agent. 2. If overall lifetime risk for the development of breast cancer is 20% or higher, the patient may qualify for future screening with alternating mammogram and breast MRI. Electronically signed and approved by: Javier Ruvalcaba M.D. Radiologis
== END | disposition home or self-care (01) ==
LOC: RADMAMWWP 13:08
PROVIDERS: ATTEND Family Medicine
DX: Z12.31 Encounter for screening mammogram for malignant neoplasm of breast (principal); Z78.0 Asymptomatic menopausal state
CPT/HCPCS: 77063; 77067

== ENCOUNTER → 2024-07-02 | Outpatient (CLI) | payer MEDICARE ==
--- NOTE | 2024-07-02 14:46 | CT ---
EXAMINATION TYPE: CT chest wo con DATE OF EXAM: 07/02/2024 COMPARISON: CT angiogram chest 05/31/2019 HISTORY: MASS/LUMP RIGHT UPPER CHEST CT DLP: 257.4 mGycm. Automated Exposure Control for Dose Reduction was Utilized. TECHNIQUE: CT scan of the thorax is performed without IV contrast. FINDINGS: There are 2, 5 - 6 mm groundglass nodular densities in the left lower lobe, not seen on the prior st udy. There is no airspace consolidation or abnormal interstitial density. There is no pleural effusion or pneumothorax. The great vessels and chest are normal and there is no mediastinal, hilar or axillary adenopathy. The soft tissues and osseous structures of the thorax are unremarkable and there is no evidence of balwinder mbar mass. Limited scanning through the upper abdomen reveals cholecystectomy but no other significant abnormali ty. IMPRESSION: 1. No evidence of soft tissue mass or lump of the thorax. 2. 2 new new 5 to 6 mm groundglass nodules in the left lower lobe. Follow-up in 3 months is recommend ed to assess stability. 3. No acute cardiopulmonary disease.
== END | disposition home or self-care (01) ==
LOC: RADCTMAIN 14:09
PROVIDERS: ATTEND Family Medicine
DX: R91.8 Other nonspecific abnormal finding of lung field (principal)
CPT/HCPCS: 71250

== ENCOUNTER → 2024-07-26 | Outpatient (CLI) | payer MEDICARE ==
--- NOTE | 2024-07-26 17:13 | US ---
EXAMINATION TYPE: US kidneys/renal and bladder DATE OF EXAM: 07/26/2024 COMPARISON: None CLINICAL INDICATION: Female, 59 years old with history of N32.81 OVERACTTIVE BLADDER; Patient states she has to force her urine out. EXAM MEASUREMENTS: Right Kidney: 9.1 x 5.2 x 3.9 cm Left Kidney: 9.8 x 4.6 x 5.6 cm Right Kidney: No hydronephrosis or masses seen Left Kidney: No hydronephrosis or masses seen Bladder: distended, anechoic Bilateral Jets seen There is no evidence for hydronephrosis at this point in time. No nephrolithiasis is seen. No phil s are identified. The urinary bladder is anechoic. Bilateral ureteral jets are seen. IMPRESSION: No evidence for obstructive uropathy. [facility] Vincenzo Garcia, Workstation: [id number], 07/26/2024 5:11 PM
== END | disposition home or self-care (01) ==
LOC: RADUSWWP 15:28
PROVIDERS: ATTEND Urology
DX: N32.81 Overactive bladder (principal)
CPT/HCPCS: 76770

== ENCOUNTER 2025-03-01 12:22 | Emergency (ER) | payer MEDICARE ==
--- NOTE | 2025-03-01 12:43 | ED ---
General Adult HPI - General Chief complaint: Abdominal Pain Stated complaint: NVD Time Seen by Provider: 03/01/25 12:26 Source: patient, RN notes reviewed Mode of arrival: ambulatory Limitations: no limitations - History of Present Illness Initial comments: 60-year-old female presents to the emergency department for evaluation of abdominal pain. Patient states that she was recently exposed to multiple people with a GI bug. She states that her symptoms have been going on since Tuesday. She admits to nausea, dry heaves, diarrhea. She does report a history of a Stacey fundoplication and therefore has not had any vomiting. She reports discomfort in the epigastric region. She denies any known fever, chills. She does report having multiple loose bowel movements. She has had multiple prior abdominal surgeries. - Related Data Home Medications Medication Instructions Recorded Confirmed oxyCODONE HCL [oxyCODONE HCL (IR)] 30 mg PO QID PRN 11/19/21 03/01/25 Dextroamphetamine/Amphetamine 30 mg PO BID 01/29/22 03/01/25 [Adderall] Albuterol Inhaler [Ventolin Hfa 2 puff INHALATION RT-QID PRN 03/01/25 03/01/25 Inhaler] Amitriptyline HCl [Elavil] 10 mg PO HS 03/01/25 03/01/25 Fenofibrate [Lofibra] 160 mg PO DAILY 03/01/25 03/01/25 Gabapentin 800 mg PO DIRECTED PRN 03/01/25 03/01/25 Ibuprofen [Motrin] 800 mg PO TID PRN 03/01/25 03/01/25 methocarbamoL [Robaxin-750] 750 mg PO TID PRN 03/01/25 03/01/25 traZODone HCL [Desyrel] 50 mg PO HS PRN 03/01/25 03/01/25 Allergies Allergy/AdvReac Type Severity Reaction Status Date / Time morphine Allergy Mild Rash/Hives Verified 03/01/25 12:25 states "can take if benadryl given with it" adhesive Allergy tears skin Verified 03/01/25 12:25 Review of Systems ROS Statement: Those systems with pertinent positive or pertinent negative responses have been documented in the HPI. ROS Other: All systems not noted in ROS Statement are negative. Past Medical History Past Medical History: COPD, Fibromyalgia, GERD/Reflux, Hyperlipidemia, Hypertension, Osteoarthritis (OA), Sleep Apnea/CPAP/BIPAP, Thyroid Disorder Additional Past Medical History / Comment(s): CPAP @ 7.5L; History of Any Multi-Drug Resistant Organisms: MRSA Date of last positivie culture/infection: 08/01/19 MDRO Source:: MRSA BRONCH WASH Past Surgical History: Section, Hernia Repair, Hysterectomy, Joint Replacement, Orthopedic Surgery Additional Past Surgical History / Comment(s): total r knee x2; BILAT CARPAL TUNNEL; KNEE ARTHROSCOPY LEFT;. LEFT OVARIAN CYST removal failed. X5, cervical discectomy 08/2017, neck surgery Past Anesthesia/Blood Transfusion Reactions: No Reported Reaction Past Psychological History: ADD/ADHD, Depression Smoking Status: Former smoker, Never smoker Past Alcohol Use History: None Reported Past Drug Use History: None Reported - Past Family History Mother Family Medical History: Congestive Heart Failure (CHF) Father Family Medical History: Cancer Additional Family Medical History / Comment(s): COLON General Exam Limitations: no limitations General appearance: alert, in no apparent distress Head exam: Present: atraumatic, normocephalic, normal inspection Eye exam: Present: normal appearance, PERRL, EOMI. Absent: scleral icterus, c onjunctival injection, periorbital swelling ENT exam: Present: normal exam, mucous membranes moist Neck exam: Present: normal inspection. Absent: tenderness, meningismus, lymphadenopathy Respiratory exam: Present: normal lung sounds bilaterally. Absent: respiratory distress, wheezes, rales, rhonchi, stridor Cardiovascular Exam: Present: regular rate, normal rhythm, normal heart sounds. Absent: systolic murmur, diastolic murmur, rubs, gallop, clicks GI/Abdominal exam: Present: soft, normal bowel sounds. Absent: distended, tenderness, guarding, rebound, rigid Extremities exam: Present: normal inspection, full ROM, normal capillary refill. Absent: tenderness, pedal edema, joint swelling, calf tenderness Back exam: Present: normal inspection Neurological exam: Present: alert, oriented X3 Psychiatric exam: Present: normal affect, normal mood Skin exam: Present: warm, dry, intact, normal color. Absent: rash Course Vital Signs 03/01/25 03/01/25 03/01/25 12:23 12:25 14:20 Temperature 97.6 F Pulse Rate 92 85 70 Respiratory 18 20 20 Rate Blood Pressure 135/80 130/68 130/70 O2 Sat by Pulse 98 98 98 Oximetry 03/01/25 03/01/25 03/01/25 15:00 16:00 16:29 Temperature 98.2 F Pulse Rate 65 70 80 Respiratory 18 20 16 Rate Blood Pressure 141/75 141/68 130/68 O2 Sat by Pulse 99 98 98 Oximetry Medical Decision Making - Medical Decision Making Was pt. sent in by a medical professional or institution (, PA, OPERATIONS SUPERVISOR 2ND [employer], urgent care, hospital, or retirement...) When possible be specific @ -No Did you speak to anyone other than the patient for history (EMS, parent, family, police, friend...)? What history was obtained from this source @ -No Did you review nursing and triage notes (agree or disagree)? Why? @ -I reviewed and agree with nursing and triage notes Were old charts reviewed (outside hosp., previous admission, EMS record, old EKG, old radiological studies, urgent care reports/EKG's, retirement records)? Report findings @ -No old charts were reviewed Differential Diagnosis (chest pain, altered mental status, abdominal pain women, abdominal pain men, vaginal bleeding, weakness, fever, dyspnea, syncope, headache, dizziness, GI bleed, back pain, seizure, CVA, palpatations, mental health, musculoskeletal)? @ -Differential Abdominal Pain Women: Appendicitis, Cholecystitis, diverticulosis, ischemic bowel, pancreatitis, hepatitis, UTI, gastroenteritis, AAA, incarcerated hernia, bowel obstruction, constipation, inflammatory bowel, hepatitis, peptic ulcer disease, splenic infarction, perforated viscus, vulvitis, ovarian torsion, PID, kidney stone, placenta abruption, this is not meant to be an all-inclusive list EKG interpreted by me (3pts min.). @ -EKG [id number] shows sinus rhythm rate of 85, OH 179, QRS 89, QTQTc [id number] X-rays interpreted by me (1pt min.). @ -None done CT interpreted by me (1pt min.). @ -CT abdomen pelvis showsNo acute abdominal process, no evidence for pancreatitis, postsurgical changes at the GE junction U/S interpreted by me (1pt. min.). @ -None done What testing was considered but not performed or refused? (CT, X-rays, U/S, labs )? Why? @ -None What meds were considered but not given or refused? Why? @ -None Did you discuss the management of the patient with other professionals (professionals i.e. , PA, OPERATIONS SUPERVISOR 2ND [employer], lab, RT, psych nurse, child protective services social worker, elevator installer, teacher, property utilization officer, casework manager)? Give summary @ -No Was smoking cessation discussed for >3mins.? @ -No Was critical care preformed (if so, how long)? @ -No Were there social determinants of health that impacted care today? How? (Homelessness, low income, unemployed, alcoholism, drug addiction, transportation, low edu. Level, literacy, decrease access to med. care, [facility], rehab)? @ -No Was there de-escalation of care discussed even if they declined (Discuss DNR or withdrawal of care, Hospice)? DNR status @ -No What co-morbidities impacted this encounter? (DM, HTN, Smoking, COPD, CAD, Cancer, CVA, ARF, Chemo, Hep., AIDS, mental health diagnosis, sleep apnea, morbid obesity)? @ -None Was patient admitted / discharged? Hospital course, mention meds given and route, prescriptions, significant lab abnormalities, going to OR and other pertinent info. @ -Discharge. Patient presents emergency department for evaluation of abdominal pain, nausea, diarrhea. She does note other people with similar symptoms. Laboratory studies were obtainedRevealing no significant leukocytosis, hemoglobin stable at 13.8; CMP is nonactionable at this time with very mild transaminitis, bilirubin within normal limits. Patient had a negative troponin. UA shows no evidence of infectious process. CT of the abdomen pelvis reveals no evidence of acute process. The patient was advised on findings. She will be discharged home. She is understanding agreeable with plan. Patient stable at time of discharge. Case discussed with Dr. Samayoa. Undiagnosed new problem with uncertain prognosis? @ -No Drug Therapy requiring intensive monitoring for toxicity (Heparin, Nitro, Insulin, Cardizem)? @ -No Were any procedures done? @ -No Diagnosis/symptom? @ -Gastroenteritis Acute, or Chronic, or Acute on Chronic? @ -Acute Uncomplicated (without systemic symptoms) or Complicated (systemic symptoms)? @ -Uncomplicated Side effects of treatment? @ -No Exacerbation, Progression, or Severe Exacerbation? @ -No Poses a threat to life or bodily function? How? (Chest pain, USA, VT, pneumonia, PE, COPD, DKA, ARF, appy, cholecystitis, CVA, Diverticulitis, Homicidal, Suicidal, threat to staff... and all critical care pts) @ -No - Lab Data Result diagrams: 03/01/25 12:42 03/01/25 12:42 Lab Results 03/01/25 03/01/25 03/01/25 Range/Units 12:42 12:42 12:42 WBC 5.26 (4.50-10.00) 10*3/uL RBC 4.99 (4.10-5.20) 10*6/uL Hgb 13.8 (12.0-15.0) g/dL Hct 42.4 (37.2-46.3) % MCV 85.0 (80.0-97.0) fL MCH 27.7 (27.0-32.0) pg MCHC 32.5 (32.0-37.0) g/dL Plt Count 353 (140-440) 10*3/uL MPV 11.1 (9.5-12.2) fL Immature Gran % (Auto) 0.4 % Neutrophils % 50.8 % Lymphocytes % 33.5 % Monocytes % 12.2 % Eosinophils % 2.3 % Basophils % 0.8 % Immature Gran # 0.02 (0.00-0.04) 10*3/uL Neutrophils # 2.68 (1.80-7.70) 10*3/uL Lymphocytes # 1.76 (0.90-5.00) 10*3/uL Monocytes # 0.64 (0.20-1.00) 10*3/uL Eosinophils # 0.12 (0.04-0.35) 10*3/uL Basophils # 0.04 (0.00-0.10) 10*3/uL Sodium 141 (137-145) mmol/L Potassium 4.0 (3.5-5.1) mmol/L Chloride 100 (98-107) mmol/L Carbon Dioxide 27 (22-30) mmol/L Anion Gap 14 mmol/L BUN 15 (7-17) mg/dL Creatinine 0.84 (0.52-1.04) mg/dL Est GFR (CKD-EPI)AfAm 88 (>60 ml/min/1.73 sqM) Est GFR (CKD-EPI)NonAf 76 (>60 ml/min/1.73 sqM) Glucose 91 (74-99) mg/dL Calcium 9.3 (8.4-10.2) mg/dL Total Bilirubin 0.6 (0.2-1.3) mg/dL AST 55 H (14-36) U/L ALT 50 H (4-34) U/L Alkaline Phosphatase 84 (38-126) U/L Troponin I (0.000-0.034) ng/mL Total Protein 7.5 (6.3-8.2) g/dL Albumin 4.5 (3.5-5.0) g/dL Amylase 71 (30-110) U/L Lipase 201 (23-300) U/L Urine Color Colorless Urine Appearance Clear (Clear) Urine pH 6.5 (5.0-8.0) Ur Specific Brackney 1.004 (1.001-1.035) Urine Protein Negative (Negative) Urine Glucose (UA) Negative (Negative) Urine Ketones Negative (Negative) Urine Blood Negative (Negative) Urine Nitrite Negative (Negative) Urine Bilirubin Negative (Negative) Urine Urobilinogen <2.0 (<2.0) mg/dL Ur Leukocyte Esterase Small H (Negative) Urine RBC 1 (0-5) /hpf Urine WBC 2 (0-5) /hpf Ur Squamous Epith Cells 2 (0-4) /hpf Urine Bacteria Rare H (None) /hpf 03/01/ Range/Units 12:53 WBC (4.50-10.00) 10*3/uL RBC (4.10-5.20) 10*6/uL Hgb (12.0-15.0) g/dL Hct (37.2-46.3) % MCV (80.0-97.0) fL MCH (27.0-32.0) pg MCHC (32.0-37.0) g/dL Plt Count (140-440) 10*3/uL MPV (9.5-12.2) fL Immature Gran % (Auto) % Neutrophils % % Lymphocytes % % Monocytes % % Eosinophils % % Basophils % % Immature Gran # (0.00-0.04) 10*3/uL Neutrophils # (1.80-7.70) 10*3/uL Lymphocytes # (0.90-5.00) 10*3/uL Monocytes # (0.20-1.00) 10*3/uL Eosinophils # (0.04-0.35) 10*3/uL Basophils # (0.00-0.10) 10*3/uL Sodium (137-145) mmol/L Potassium (3.5-5.1) mmol/L Chloride (98-107) mmol/L Carbon Dioxide (22-30) mmol/L Anion Gap mmol/L BUN (7-17) mg/dL Creatinine (0.52-1.04) mg/dL Est GFR (CKD-EPI)AfAm (>60 ml/min/1.73 sqM) Est GFR (CKD-EPI)NonAf (>60 ml/min/1.73 sqM) Glucose (74-99) mg/dL Calcium (8.4-10.2) mg/dL Total Bilirubin (0.2-1.3) mg/dL AST (14-36) U/L ALT (4-34) U/L Alkaline Phosphatase (38-126) U/L Troponin I <0.012 (0.000-0.034) ng/mL Total Protein (6.3-8.2) g/dL Albumin (3.5-5.0) g/dL Amylase (30-110) U/L Lipase (23-300) U/L Urine Color Urine Appearance (Clear) Urine pH (5.0-8.0) Ur Specific Brackney (1.001-1.035) Urine Protein (Negative) Urine Glucose (UA) (Negative) Urine Ketones (Negative) Urine Blood (Negative) Urine Nitrite (Negative) Urine Bilirubin (Negative) Urine Urobilinogen (<2.0) mg/dL Ur Leukocyte Esterase (Negative) Urine RBC (0-5) /hpf Urine WBC (0-5) /hpf Ur Squamous Epith Cells (0-4) /hpf Urine Bacteria (None) /hpf Disposition Clinical Impression: Abdominal pain, Nausea and vomiting Disposition: HOME SELF-CARE Condition: Stable Instructions (If sedation given, give patient instructions): Abdominal Pain (ED) Additional Instructions: Please follow up with your primary care provider. Return to the emergency department for new or worsening symptoms. Is patient prescribed a controlled substance at d/c from ED?: No Referrals: Francisco Evangelista MD [Primary Care Provider] - 1-2 days
[2025-03-01] MEDS: SODIUM CHLORIDE 0.9% 1,000 ML IV ONE (12:48)
[2025-03-01 13:04] LABS: Basophils # (A) 0.04 10*3/uL (0.00-0.10); Basophils % (A) 0.8 %; Eosinophils # (A) 0.12 10*3/uL (0.04-0.35); Eosinophils % (A) 2.3 %; HCT 42.4 % (37.2-46.3); HGB 13.8 g/dL (12.0-15.0); Lymphocytes # (A) 1.76 10*3/uL (0.90-5.00); Lymphocytes % (A) 33.5 %; MCH 27.7 pg (27.0-32.0); MCHC 32.5 g/dL (32.0-37.0); Mean Platelet Volume 11.1 fL (9.5-12.2); Monocytes # (A) 0.64 10*3/uL (0.20-1.00); Monocytes % (A) 12.2 %; Neutrophils # (A) 2.68 10*3/uL (1.80-7.70); Neutrophils % (A) 50.8 %; Platelet Count 353 10*3/uL (140-440); RBC 4.99 10*6/uL (4.10-5.20); RDW 13.1 % (11.5-14.5); WBC 5.26 10*3/uL (4.50-10.00)
[2025-03-01 13:19] LABS: ALT 50 U/L (4-34); AST 55 U/L (14-36); African American GFR (CKD) 88 (>60 ml/min/1.73 sqM); Albumin 4.5 g/dL (3.5-5.0); Alkaline Phosphatase 84 U/L (38-126); Amylase 71 U/L (30-110); Anion Gap 14 mmol/L; Blood Urea Nitrogen 15 mg/dL (7-17); Calcium 9.3 mg/dL (8.4-10.2); Carbon Dioxide 27 mmol/L (22-30); Chloride 100 mmol/L (98-107); Glucose 91 mg/dL (74-99); Lipase 201 U/L (23-300); Non-African American GFR(CKD) 76 (>60 ml/min/1.73 sqM); Sodium 141 mmol/L (137-145); Total Bilirubin 0.6 mg/dL (0.2-1.3); Total Protein 7.5 g/dL (6.3-8.2)
[2025-03-01 14:37] LABS: Appearance,Urine Clear (Clear); Bacteria,Urine Rare /hpf; Bilirubin,Urine Negative (Negative); Blood,Urine Negative (Negative); Color,Urine Colorless; Glucose,Urine (UA) Negative (Negative); Ketones,Urine Negative (Negative); Leukocyte Esterase,Urine Small (Negative); Nitrite,Urine Negative (Negative); PH, Urine 6.5 (5.0-8.0); Protein,Urine Negative (Negative); RBC,Urine 1 /hpf (0-5); Specific Gravity,Urine 1.004 (1.001-1.035); Squamous Epithelial Cell,Urine 2 /hpf (0-4); Urobilinogen,Urine <2.0 mg/dL (<2.0); WBC,Urine 2 /hpf (0-5)
[2025-03-01 15:12] VITALS: TEMP 98.2
--- NOTE | 2025-03-01 15:13 | CT ---
EXAMINATION TYPE: CT abdomen pelvis w con DATE OF EXAM: 03/01/2025 2:47 PM COMPARISON: 04/06/2019. CLINICAL INDICATION: Female, 60 years old with history of abd pain; Epigastric abdominal pain. TECHNIQUE: Axial CT abdomen pelvis w con;Sagittal and coronal reformats were created on a separate w orkstation. Contrast used:100ml mL of Isovue 300 with IV Contrast, (none if empty) Oral contrast used: without Oral Contrast (none if empty) CT DLP: 780.5 mGycm, Automated exposure control for dose reduction was used. FINDINGS: LOWER CHEST: Heart is mildly enlarged for size. ABDOMEN LIVER: Unremarkable GALLBLADDER AND BILE DUCTS: Gallbladder is surgically absent with mild intrahepatic and extra hepatic biliary dilatation likely physiologic and a postcholecystectomy change. No evidence of choledocholit hiasis. PANCREAS: Unremarkable. SPLEEN: Unremarkable. ADRENAL GLANDS: Unremarkable. KIDNEYS AND URETERS: No evidence of hydronephrosis or obstructing renal calculus. The ureters are unr emarkable. PELVIS BLADDER: No evidence for wall thickening or mass given limitations of exam. REPRODUCTIVE: Unremarkable. ABDOMEN & PELVIS STOMACH AND BOWEL: Postsurgical changes gastroesophageal junction. No evidence of bowel obstruction. Appendix is visualized and fluid-filled. No adjacent inflammation. Watery stool throughout the colon and on the right. Second portion duodenal diverticulum. PERITONEUM/RETROPERITONEUM: No evidence of pneumoperitoneum or free fluid. VASCULATURE: Mild atherosclerotic calcifications are present throughout the abdominal aorta and its b ranches. No evidence of aortic aneurysm. MUSCULOSKELETAL: No acute osseous abnormalities. Mild disc degeneration changes are present throughou t the thoracolumbar spine. Grade 1 anterolisthesis of L4 on L5. Passive reformations. Acetabulum. LYMPH NODES: No gross evidence for lymphadenopathy. SOFT TISSUE/ABDOMINAL WALL: Fat-containing ventral wall hernia measuring up to 4.0 cm at the neck in caudocranial dimension on sagittal imaging. IMPRESSION: 1. No evidence for acute abdominal process. No evidence for pancreatitis. 2. Postsurgical changes gastroesophageal junction. 3. Gallbladder is surgically absent with mild intrahepatic and extra hepatic biliary dilatation like ly physiologic and a postcholecystectomy change. No evidence of choledocholithiasis. If there remains concern consider MRI MRCP. 4. Mild cardiomegaly. [facility], , 03/01/2025 3:11 PM
[2025-03-01] MEDS: ONDANSETRON 4 MG ODT STARTER PACK 2 TAB BTL PO STA (16:28)
[2025-03-01 16:30] VITALS: BP 130/68; PULSE 80; RESP 16
== END 2025-03-01 16:30 | disposition home or self-care (01) ==
LOC: EC 12:22
DX: K52.9 Noninfective gastroenteritis and colitis, unspecified (principal); R74.01 Elevation of levels of liver transaminase levels; Z88.5 Allergy status to narcotic agent; Z91.09 Other allergy status, other than to drugs and biological substances; Z87.891 Personal history of nicotine dependence
CPT/HCPCS: 36415; 93005; 80053; 82150; 83690; 84484; 85025; 81001; 87086; 74177; 99284; 96360; 96361 ×3; S0119; Q9967